=== PATIENT | female | born 1935 | race Caucasian/White ===

== ENCOUNTER 2016-08-15 03:24 | Inpatient (IN) | payer MEDICARE, OTHER ==
[2016-08-15] MEDS ORDERED: NS 0.9% 1000 ML* 1,000 ML IV ONE (03:36)
[2016-08-15] MEDS: Morphine INJ* 2 MG/ML 1 ML SYRINGE IV ONE ×2 (03:44→04:24)
[2016-08-15] MEDS: Ondansetron INJ* 2 MG/ML VIAL IV ONE ×2 (03:45→04:41)
--- NOTE | 2016-08-15 04:01 | ED ---
Abdulkadir Cardona Benjamin, scribed for Garett Goodson MD on 08/15/16 at 0339 . HPI Chest Pain - HPI Summary HPI Summary: 81yo female c/o of sudden onset CP and LUQ abdominal pain for a few hours. Pt also reports feeling nauseous. Pt has hx of gastric ulcer with surgery in 2009. Other PMHx includes HTN, DM1, hypercholesterolemia, and renal failure. - History of Current Complaint Chief Complaint: EDChestPainROMI Hx Obtained From: Patient Onset/Duration: Started Hours Ago, Still Present Timing: Constant Initial Severity: Moderate Current Severity: Moderate Pain Intensity: 8 Pain Scale Used: 0-10 Numeric Chest Pain Location: Diffuse Chest Pain Radiates: Yes Chest Pain Radiates To:: Other - LUQ Aggravating Factor(s): Nothing Alleviating Factor(s): Nothing Associated Signs and Symptoms: Positive: Nausea, Abdominal Pain - Allergy/Home Medications Allergies/Adverse Reactions: Allergies Allergy/AdvReac Type Severity Reaction Status Date / Time No Known Allergies Allergy Verified 08/15/16 03:28 Home Medications: Home Medications Losartan Potassium 100 mg PO QAM 08/15/16 [History Confirmed 08/15/16] Metformin HCl [Metformin HCl ER] 2,000 mg PO QPM 08/15/16 [History Confirmed ] Pioglitazone HCl 30 mg PO QPM 08/15/16 [History Confirmed 08/15/16] PMH/Surg Hx/FS Hx/Imm Hx Endocrine/Hematology History: Denies: Hx Diabetes Cardiovascular History: Denies: Hx Congestive Heart Failure, Hx Hypertension Respiratory History: Reports: Hx Chronic Obstructive Pulmonary Disease (COPD) GI History: Reports: Hx Ulcer - HX OF , 2 YEARS AGO, SOME DISCOMFORT STILL History: Reports: Hx Chronic Renal Failure Musculoskeletal History: Reports: Hx Arthritis, Hx Back Problems, Hx Osteoporosis Denies: Hx Orthopedic Injury Sensory History: Reports: Hx Cataracts, Hx Contacts or Glasses Denies: Hx Hearing Aid Opthamlomology History: Reports: Hx Cataracts, Hx Contacts or Glasses - Cancer History Hx Chemotherapy: No Hx Radiation Therapy: No - Surgical History Surgery Procedure, Year, and Place: 1965, breast biopsy , cateracts x2 , ulcers Hx Anesthesia Reactions: No Infectious Disease History: No Infectious Disease History: Reports: Hx Clostridium Difficile, Hx Shingles Denies: Traveled Outside the [place] in Last 30 Days - Family History Known Family History: Positive: Diabetes, Renal Disease Negative: Cardiac Disease - Social History Occupation: Retired Lives: With Family Substance Use Type: Reports: None Review of Systems Constitutional: Negative Eyes: Negative ENT: Negative Positive: Chest Pain Respiratory: Negative Positive: Abdominal Pain - LUQ, Nausea. Negative: Vomiting, Diarrhea Genitourinary: Negative Musculoskeletal: Negative Skin: Negative Neurological: Negative Psychological: Normal All Other Systems Reviewed And Are Negative: Yes Physical Exam Triage Information Reviewed: Yes Vital Signs On Initial Exam: Initial Vitals Temp Pulse Resp BP Pulse Ox 98.2 F 80 18 161/56 100 08/15/16 03:25 08/15/16 03:25 08/15/16 03:25 08/15/16 03:25 08/15/16 03:25 Vital Signs Reviewed: Yes Appearance: Positive: Well-Appearing, Pain Distress - mild discomfort Skin: Positive: Warm Head/Face: Positive: Normal Head/Face Inspection Eyes: Positive: HANNY ENT: Positive: Hearing grossly normal Neck: Positive: Supple Respiratory/Lung Sounds: Positive: Clear to Auscultation, Breath Sounds Present Cardiovascular: Positive: RRR Abdomen Description: Positive: Soft, Other: - mild diffuse upper absd tenderness. Negative: Distended, Guarding Bowel Sounds: Positive: Present Musculoskeletal: Positive: Strength/ROM Intact Neurological: Positive: Alert, Oriented to Person Place, Time Psychiatric: Positive: Affect/Mood Appropriate Diagnostics - Vital Signs Vital Signs Temp Pulse Resp BP Pulse Ox 08/15/16 03:25 98.2 F 80 18 161/56 100 - Laboratory Result Diagrams: 08/16/16 05:19 08/16/16 05:19 Lab Statement: Any lab studies that have been ordered have been reviewed, and results considered in the medical decision making process. - CT CT Abd/Pelv W CT Interpretation: Positive (See Comments) - cholecystitis with suspected pancreatitis can't be correlated with amylase and lipase levels. - EKG 0329 Cardiac Rate: NL - 79bpm EKG Rhythm: Sinus Rhythm ST Segment: Normal Ectopy: None Chest Pain Course/Dx - Diagnoses Provider Diagnoses: Acute pancreatitis - Provider Notifications Discussed Care Of Patient With: Dr. Loo (Hospitalist) @0126. Instructed by Provider To: Admit As Inpatient Discharge - Discharge Plan Condition: Fair Disposition: ADMITTED TO [facility] The documentation as recorded by the scribeAbdulkadir Benjamin accurately reflects the service I personally performed and the decisions made by me, Garett Goodson MD.
[2016-08-15 04:12] LABS: Albumin 3.6 g/dL (3.2-5.2); BUN/Creatinine Ratio 21.2 (8-20); C Reactive Protein 1.8 mg/L (< 5.00); Calcium 9.6 mg/dL (8.6-10.3); EGFR African American 56.3 (>60); EGFR Non-African American 43.7 (>60); Globulin 3.6 g/dL (2-4); Hematocrit 39 % (35-47); Hemoglobin 12.4 g/dl (12.0-16.0); Magnesium 1.6 mg/dL (1.9-2.7); Mean Corpuscular HGB Conc 32 g/dl (31-36); Mean Corpuscular Hemoglobin 28 pg (27-31); Mean Corpuscular Volume 87 fL (80-97); Mean Platelet Volume 10 um3 (7.4-10.4); Potassium 4.4 mmol/L (3.5-5.0); Red Blood Count 4.43 10^6/ul (4.0-5.4); Red Cell Distribution Width 15 % (10.5-15); Total Bilirubin 1.2 mg/dL (0.2-1.0); Total Protein 7.2 g/dL (6.4-8.9); White Blood Count 15.4 10^3/ul (3.5-10.8)
[2016-08-15 04:14] LABS: Troponin I 0.01 ng/mL (<0.04)
[2016-08-15] MEDS ORDERED: Morphine INJ* 2 MG/ML 1 ML SYRINGE ONE (04:23)
[2016-08-15] MEDS ORDERED: Morphine INJ* 2 MG/ML 1 ML SYRINGE IV ONE (04:26)
[2016-08-15] MEDS ORDERED: HYDROmorphone* 1 MG/ML 1 ML SYR IV SLOW PU ONE (04:31)
[2016-08-15] MEDS ORDERED: Ondansetron INJ* 2 MG/ML VIAL ONE (04:40)
--- NOTE | 2016-08-15 05:35 | HP ---
H&P (Free Text) History and Physical: PCP: Irma Gamble MD Date/Time of Evaluation: 08/15/2016 0510 CC: chest pain HPI: Mrs Linn is an 81YO female HX DM2, CKD 3b, & perforated PUD presents with onset of epigastric and low chest pain yesterday AM sometime after breakfast. The pain worsened throughout the day while she developed nausea with emesis x1. She reports F/C, but denies SOB, palpitations, sweats, black/bloody emesis/stool , B/U/F of urine, or other issues. Her pain worsened to 9/10 prompting her to present for evaluation. Lipase is 5k, WBCs 15k 81% neutrophils, BUN/cre stable 25/1.18. CT abd/pel W is read as cholecystitis with suspected pancreatitis. PMedHx HTN HLD DM2 CKD stg 3b PUD Ambulatory Orders Nursing to reconcile. Atorvastatin* [Lipitor*] 10 mg PO QPM 11/27/12 Pantoprazole Sodium [Protonix] 40 mg PO QAM 11/27/12 Calcium Carbonate-Cholecalcife [Calcium + D] 1,200 mg PO QAM 03/30/13 Furosemide TAB* [Lasix TAB*] 20 mg PO MOTH 03/30/13 Lactobacillus [Probiotic] 1 cap PO QPM 03/30/13 Losartan Potassium 100 mg PO QAM 08/15/16 Metformin HCl [Metformin HCl ER] 2,000 mg PO QPM 08/15/16 Pioglitazone HCl 30 mg PO QPM 08/15/16 Allergies No Known Allergies Allergy (Verified 08/15/16 03:28) PSurgHx OU cateracts tonsillectomy breast BX, benign perforated PUD repair ventral hernia repair section D&C x3 SocHx: no tobacco, alcohol, or recreational drugs; lives with her ; formerly worked as a office secretary; full code status FamHx: positive for CAD ROS: as above, otherwise reviewed and all were negative Constitutional: NAD, shaking chills, normally developed, obese elderly white female vitals: Vital Signs Temp 36.8 C 08/15/16 03:25 Pulse 72 08/15/16 04:00 Resp 30 08/15/16 04:36 BP 145/93 08/15/16 04:30 Pulse Ox 96 08/15/16 04:00 Intake & Output 08/14/16 08/14/16 08/15/16 11:59 23:59 11:59 Weight 81.193 kg HEENM: atraumatic; sclera/conjunctiva: non-icteric/clear; hearing: clinically mildly decreased; oropharynx: clear, mucosa dry Neck: soft tissue: no nuchal rigidity; thyroid: normal Pulmonary: clear to auscultation bilaterally, good aeration, no accessory muscle use CV: RR/RR, normal S1S2, no carotid bruit, no jugular venous distention, 2+ B DP/ PT, no edema Abdominal: soft, mildly distended & tympanic, diffusely markedly tender with voluntary guarding but no rebound/rigidity, hypoactive bowel sounds, no hepatosplenomegaly or masses, no costovertebral angle tenderness Musculoskeletal: general: grossly intact; gait: unable to ambulate 2nd pain/ narcotics Integumental: normal appearance and texture of exposed skin Psychiatric orientation: AA&O to PPS affect: fatigued mood: cooperative eye contact: poor content: reliable responses: mildly slowed insight: fair to good Testing: Lab Results 08/15/16 08/15/16 08/15/16 Range/Units 03:42 03:42 03:42 WBC 15.4 H (3.5-10.8) 10^3/ul RBC 4.43 (4.0-5.4) 10^6/ul Hgb 12.4 (12.0-16.0) g/dl Hct 39 (35-47) % MCV 87 (80-97) fL MCH 28 (27-31) pg MCHC 32 (31-36) g/dl RDW 15 (10.5-15) % Plt Count 202 (150-450) 10^3/ul MPV 10 (7.4-10.4) um3 Neut % (Auto) 81.4 (38-83) % Lymph % (Auto) 10.7 L (25-47) % [place] % (Auto) 7.4 (1-9) % Eos % (Auto) 0.2 (0-6) % Baso % (Auto) 0.3 (0-2) % Absolute Neuts (auto) 12.5 H (1.5-7.7) 10^3/ul Absolute Lymphs (auto) 1.6 (1.0-4.8) 10^3/ul Absolute Monos (auto) 1.1 H (0-0.8) 10^3/ul Absolute Eos (auto) 0 (0-0.6) 10^3/ul Absolute Basos (auto) 0 (0-0.2) 10^3/ul Absolute Nucleated RBC 0.01 10^3/ul Nucleated RBC % 0 INR (Anticoag Therapy) 0.90 (0.89-1.11) Sodium 141 (133-145) mmol/L Potassium 4.4 (3.5-5.0) mmol/L Chloride 104 (101-111) mmol/L Carbon Dioxide 24 (22-32) mmol/L Anion Gap 13 H (2-11) mmol/L BUN 25 H (6-24) mg/dL Creatinine 1.18 H (0.51-0.95) mg/dL Est GFR ( Amer) 56.3 (>60) Est GFR (Non-Af Amer) 43.7 (>60) BUN/Creatinine Ratio 21.2 H (8-20) Glucose 159 H (70-100) mg/dL Lactic Acid (0.5-2.0) mmol/L Calcium 9.6 (8.6-10.3) mg/dL Magnesium 1.6 L (1.9-2.7) mg/dL Total Bilirubin 1.20 H (0.2-1.0) mg/dL AST 61 H (13-39) U/L ALT 34 (7-52) U/L Alkaline Phosphatase 84 (34-104) U/L Troponin I 0.01 (<0.04) ng/mL C-Reactive Protein 1.80 (< 5.00) mg/L Total Protein 7.2 (6.4-8.9) g/dL Albumin 3.6 (3.2-5.2) g/dL Globulin 3.6 (2-4) g/dL Albumin/Globulin Ratio 1.0 (1-3) Lipase 5131 H (11.0-82.0) U/L 08/15/ Range/Units 03:42 WBC (3.5-10.8) 10^3/ul RBC (4.0-5.4) 10^6/ul Hgb (12.0-16.0) g/dl Hct (35-47) % MCV (80-97) fL MCH (27-31) pg MCHC (31-36) g/dl RDW (10.5-15) % Plt Count (150-450) 10^3/ul MPV (7.4-10.4) um3 Neut % (Auto) (38-83) % Lymph % (Auto) (25-47) % [place] % (Auto) (1-9) % Eos % (Auto) (0-6) % Baso % (Auto) (0-2) % Absolute Neuts (auto) (1.5-7.7) 10^3/ul Absolute Lymphs (auto) (1.0-4.8) 10^3/ul Absolute Monos (auto) (0-0.8) 10^3/ul Absolute Eos (auto) (0-0.6) 10^3/ul Absolute Basos (auto) (0-0.2) 10^3/ul Absolute Nucleated RBC 10^3/ul Nucleated RBC % INR (Anticoag Therapy) (0.89-1.11) Sodium (133-145) mmol/L Potassium (3.5-5.0) mmol/L Chloride (101-111) mmol/L Carbon Dioxide (22-32) mmol/L Anion Gap (2-11) mmol/L BUN (6-24) mg/dL Creatinine (0.51-0.95) mg/dL Est GFR ( Amer) (>60) Est GFR (Non-Af Amer) (>60) BUN/Creatinine Ratio (8-20) Glucose (70-100) mg/dL Lactic Acid 1.8 (0.5-2.0) mmol/L Calcium (8.6-10.3) mg/dL Magnesium (1.9-2.7) mg/dL Total Bilirubin (0.2-1.0) mg/dL AST (13-39) U/L ALT (7-52) U/L Alkaline Phosphatase (34-104) U/L Troponin I (<0.04) ng/mL C-Reactive Protein (< 5.00) mg/L Total Protein (6.4-8.9) g/dL Albumin (3.2-5.2) g/dL Globulin (2-4) g/dL Albumin/Globulin Ratio (1-3) Lipase (11.0-82.0) U/L ECG, personally reviewed: NSR rate 78, mild ST depression V5-6 CT abd/pel W, personally reviewed: cholecystitis with suspected pancreatitis Impression: 81F presenting with acute pancreatitis & cholecystitis DIAGNOSIS & PLAN Primary acute pancreatitis : NPO : pain control : IVFs : supplemental oxygen : supportive care cholecystitis : confirm via abdominal US : blood CX : IV piperacillin/tazobactam : IVFs : Lonny Sheridan MD surgery consulted, will follow : obtain interventional radiology consult this AM for consideration of per cutaneous drain Secondary HTN : hold losartan for now, monitor HLD : hold atorvastatin until taking PO DM2 : basal/correctional insulin : hold metformin & pioglitazone : check A1c CKD stg 3b : monitor periodically PUD : pantoprazole IV Admission Rational: inpatient for management of pancreatitis not expected to improve adequately w/i 48h to allow for discharge DVTp: SCDs & heparin SQ Code Status: full HCP:
[2016-08-15] MEDS ORDERED: Acetaminophen SUPP* 650 MG SUPP ONE (05:40)
[2016-08-15] MEDS ORDERED: Albuterol 2.5 MG/3 ML NEB.SOL* (0.083%) INH PRN (05:46)
[2016-08-15] MEDS ORDERED: LORazepam INJ* 2 MG/ML 1 ML VIAL IV PRN (05:46)
[2016-08-15] MEDS ORDERED: Acetaminophen SUPP* 650 MG SUPP PR ONE (05:47)
[2016-08-15] MEDS ORDERED: Ondansetron INJ* 2 MG/ML VIAL IV PRN (05:47)
[2016-08-15] MEDS ORDERED: Acetaminophen SUPP* 650 MG SUPP PR PRN (05:47)
[2016-08-15] MEDS ORDERED: NS 0.9% 1000 ML* 1,000 ML IV SCH (06:00)
[2016-08-15] MEDS ORDERED: fentaNYL* 50 MCG/ML 2 ML VIAL (100 MCG VIAL) IV SLOW PU PRN (07:02)
[2016-08-15] MEDS ORDERED: Magnesium Sulfate 2 GM IV* 2 GM/50 ML BAG IVPB ONE ×3 (07:04→15:23)
[2016-08-15] MEDS ORDERED: Insulin LISPRO* 1 UNITS UNIT SUBCUT SCH (08:00)
[2016-08-15] MEDS: Pantoprazole IV* 40 MG IV SCH (08:10)
--- NOTE | 2016-08-15 08:47 | RAD ---
HISTORY: Cholecystitis on CT COMPARISONS: CT dated August 15, 2016 TECHNIQUE: Multiple transverse and longitudinal ultrasound images were obtained of the right upper quadrant of the abdomen using grayscale and color Doppler imaging. FINDINGS: LIVER: The liver is diffusely echogenic and coarse in echotexture, with decreased acoustic transmission. The liver is otherwise normal in shape, size, and contour. There is normal hepatopedal flow of the portal vein on Doppler imaging. BILIARY TREE: There is no intrahepatic or extrahepatic biliary dilatation. The common duct measures 0.5 cm. GALLBLADDER: There is cholelithiasis. There are immobile stones noted at the level of the neck. There is mild gallbladder wall thickening. There is no pericholecystic fluid. The presence or absence of a sonographic Toth's sign is indeterminate. PANCREAS: The head of the pancreas is unremarkable. The tail of the pancreas is not well visualized secondary to overlying bowel gas. RIGHT KIDNEY: The right kidney is normal in shape, size, contour, and echogenicity. There is no hydronephrosis or nephrolithiasis. The right kidney measures 8.1 x 4.3 x 4.4 cm. AORTA AND IVC: The aorta and IVC are unremarkable. FLUID: There are no pleural effusions. There is no free fluid within the hepatorenal recess. OTHER FINDINGS: None. IMPRESSION: CHOLELITHIASIS WITH MILD GALLBLADDER WALL THICKENING. THERE ARE IMMOBILE STONES NOTED WITHIN THE GALLBLADDER NECK. THE SONOGRAPHIC FEATURES ARE INDETERMINATE FOR ACUTE CHOLECYSTITIS.
--- NOTE | 2016-08-15 09:05 | RAD ---
Indication: Abdominal pain. CT of the abdomen and pelvis was performed without oral contrast. No IV contrast was given. Coronal and sagittal reconstructed images were obtained. The lung bases demonstrate no pleural fluid, nodules or masses. Cardiomegaly is noted without evidence of pericardial effusion The liver is normal in size. No focal lesions or intrahepatic duct dilatation is noted. The spleen is normal in size. No adrenal masses are noted. The kidneys demonstrate no hydronephrosis. Atherosclerotic aorta is noted. The gallbladder demonstrates calcified gallstones; however, no pericholecystic fluid or wall thickening is identified. No dilated loops of bowel are noted. There is thickening of the gastric antrum. This may represent antral gastritis although a mass is not excluded. The pancreas is atrophic. There may be some mild peripancreatic infiltration of fat. The possibility of pancreatitis should be considered. Correlation with amylase and lipase levels should be performed. CT of the pelvis demonstrates no retroperitoneal or pelvic lymphadenopathy. No dilated loops of bowel are noted. The urinary bladder is unremarkable. The visualized portions of the uterus are unremarkable. No hernias are noted. IMPRESSION: Cholelithiasis without biliary duct dilatation. There may be some mild peripancreatic infiltration of fat which may represent pancreatitis. Correlation with amylase and lipase is suggested. There is wall thickening of the gastric antrum. I cannot exclude mucosal thickening and this may represent antral gastritis of the lumen underlying mass is not excluded. Further evaluation is suggested.
[2016-08-15 10:10] LABS: Add Diff/Slide Review? Slide Review Added; Comments Flag Yes; Hematocrit 35 % (35-47); Hemoglobin 11.4 g/dl (12.0-16.0); Mean Corpuscular HGB Conc 32 g/dl (31-36); Mean Corpuscular Hemoglobin 29 pg (27-31); Mean Corpuscular Volume 89 fL (80-97); Mean Platelet Volume 9 um3 (7.4-10.4); Red Blood Count 3.99 10^6/ul (4.0-5.4); Red Cell Distribution Width 15 % (10.5-15); White Blood Count 9.1 10^3/ul (3.5-10.8)
[2016-08-15 10:19] LABS: Albumin 2.7 g/dL (3.2-5.2); BUN/Creatinine Ratio 17.9 (8-20); EGFR African American 48.6 (>60); EGFR Non-African American 37.8 (>60); Globulin 2.6 g/dL (2-4); Potassium 3.9 mmol/L (3.5-5.0); Total Bilirubin 1.7 mg/dL (0.2-1.0); Total Protein 5.3 g/dL (6.4-8.9)
--- NOTE | 2016-08-15 10:22 | ECHO ---
Patient: CHRISTINA ALMONTE [facility] Rec#: [id number] : 1935 Date: 08/15/2016 Age: 81y Height: 162.56 cm / 64.0 in Weight: 81.19 kg / 178.9 lbs Sex: F BSA: 1.87 Room#: [facility] Admit Date#: 08/15/2016 Type: Inpatient Referring: Laurie Byers MD Reading: Victor Hugo Dotson MD Gum Maker: Natalia Jonas ANDREW CC: Ricky Gamble MD Transthoracic Echocardiogram Indication: SOB BP: 101/39 HR: 96 Rhythm: NSR Findings History: DM,HTN,Raynaud's HLD,former smoker, CKD stage III,current acute abdomin, CHF in the past. Technical Comments: The study quality is good. Completed at 1000. Left Ventricle: The left ventricular chamber size is normal. Septal wall hypertrophy is observed. Global left ventricular wall motion and contractility are within normal limits. Left ventricular systolic function is at the lower limits of normal. The estimated ejection fraction is 50-55%. The patient was unable to perform a Valsalva maneuver. Left Atrium: The left atrium is normal in size. The left atrium is mildly dilated. Right Ventricle: The right ventricular cavity size is normal. The right ventricular global systolic function is normal. Right Atrium: The right atrial cavity size is normal. Aortic Valve: The aortic valve is trileaflet. There is no evidence of aortic regurgitation. There is no evidence of aortic stenosis. Mitral Valve: The mitral valve leaflets are mildly thickened. There is mild mitral regurgitation. There is no evidence of mitral stenosis. Tricuspid Valve: The tricuspid valve leaflets are normal. There is mild to moderate tricuspid regurgitation. The tricuspid regurgitant jet is wall impinging. There is evidence of mild pulmonary hypertension. There is no tricuspid stenosis. Pulmonic Valve: The pulmonic valve appears normal. There is no evidence of pulmonic regurgitation. There is no pulmonic stenosis. Pericardium: No pericardial fat pad is visualized. Aorta: There is mild dilatation of the ascending aorta. Pulmonary Artery: The main pulmonary artery appears normal. Venous: The venous system is not well visualized. Conclusions Left ventricular systolic function is at the lower limits of normal. The estimated ejection fraction is 50-55%. Mild left atrial dilatation. There is mild mitral regurgitation. There is mild to moderate tricuspid regurgitation. The tricuspid regurgitant jet is wall impinging. There is evidence of mild pulmonary hypertension. There is mild dilatation of the ascending aorta. Compared to report of study from 02/07/2011the TR is mildly increased (was mild). Measurements Name Value Normal Range RVIDd (AP) 2D 2.2 cm (0.9 - 2.6) RVDdMajor (2D) 2.8 cm (2.2 - 4.4) RAd ISD 4CH 5.4 cm (3.4 - 4.9) RA (A4C)W 3.7 cm (2.9 - 4.6) IVSd (2D) 1.2 cm (0.6 - 1) LVPWd (2D) 0.9 cm (0.6 - 1) LVIDd (2D) 4.9 cm (3.6 - 5.4) LVIDs (2D) 3.8 cm - LV FS (2D) 23 % (25 - 45) Aortic Annulus 1.9 cm (1.4 - 2.6) Ao root diameter (2D) 2.8 cm (2.1 - 3.5) Ascending Ao 3.9 cm (2.1 - 3.4) Aortic arch 2.3 cm (1.8 - 3.4) LA dimension (AP) 2D 3.3 cm (2.3 - 3.8) LAd ISD 4CH 6.2 cm (2.9 - 5.3) LA ISD 4CH W 4.3 cm (2.5 - 4.5) Name Value Normal Range LA ESV SP 4CH (A/L) 63 ml - LA ESV SP 2CH (A/L) 56 ml - LA ESV BP (A/L) 63 ml - LA ESV BP (A/L) index 33.63 ml/m2 - LA ESV SP 4CH (MOD) 58 ml - LA ESV SP 2CH (MOD) 53 ml - Name Value Normal Range MV E-wave Vmax 1.1 m/sec - MV deceleration time 128 msec - MV A-wave Vmax 0.8 m/sec - MV E:A ratio 1.27 ratio - LV septal e' Vmax 0.09 m/sec - LV lateral e' Vmax 0.06 m/sec - LV E:e' septal ratio 12.22 ratio - LV E:e' lateral ratio 18.33 ratio - Name Value Normal Range AV Vmax 1.5 m/sec - AV VTI 33.8 cm - AV peak gradient 9.67 mmHg - AV mean gradient 5.45 mmHg - LVOT Vmax 0.9 m/sec - LVOT VTI 21.1 cm - LVOT peak gradient 3.42 mmHg - LVOT mean gradient 1.98 mmHg - Name Value Normal Range MR Vmax 4.5 m/sec - MR VTI 137.6 cm - Name Value Normal Range TR Vmax 2.9 m/sec - TR peak gradient 33 mmHg - RAP 8 mmHg - RVSP 41 mmHg - Name Value Normal Range PV Vmax 0.8 m/sec - PV peak gradient 2.45 mmHg -
[2016-08-15] MEDS: D5NS 0.9% 1000 ML BAG* 1,000 ML IV SCH ×3 (11:50→23:50)
[2016-08-15] MEDS ORDERED: NS 0.9% 500 ML BAG* 500 ML IV ONE (12:00)
[2016-08-15] MEDS ORDERED: fentaNYL* 50 MCG/ML 2 ML VIAL (100 MCG VIAL) IV SLOW PU ONE (12:16)
[2016-08-15] MEDS: HYDROmorphone* 1 MG/ML 1 ML SYR IV SLOW PU PRN ×2 (12:50→19:50)
--- NOTE | 2016-08-15 13:00 | RAD ---
Indication: Question potential acute cholecystitis based on prior CT and ultrasound. Comparison: August 15, 2016 CT and ultrasound. Technique: 6.30 mCi of Tc-99m Choletec was injected IV. Serial anterior images of the abdomen were obtained immediately following radiopharmaceutical administration to 110 minutes. REPORT AND IMPRESSION: There is normal hepatic uptake however no appreciable excretion of radiopharmaceutical from the liver is observed through 110 minutes post radiopharmaceutical administration. The patient refused further imaging under the gamma camera due to discomfort. Consider potential hepatocellular dysfunction given delayed biliary excretion. Correlate with liver function tests. In absence of delayed images documenting cystic duct and common bile duct patency obstruction of both the cystic duct and common bile duct is not excluded.
--- NOTE | 2016-08-15 13:27 | PN ---
Subjective Date of Service: 08/15/16 Interval History: pt c/o severe LUQ abd pain that developed yesterday. Last BM -yesterday. Last time pt urinated on 08/14/16 transferred to ICU early AM due to hypotension Objective Active Medications: Acetaminophen (Tylenol Supp*) 650 mg CA Q6H PRN PRN Reason: FEVER/PAIN Albuterol (Ventolin 2.5 Mg/3 Ml Neb.Anya*) 2.5 mg INH Q2H PRN PRN Reason: SOB/WHEEZING Fentanyl Citrate (Fentanyl*) 25 mcg IV SLOW PU Q1H PRN PRN Reason: PAIN Last Admin: 08/15/16 08:06 Dose: 25 mcg Heparin Sodium (Porcine) (Heparin Vial(*)) 5,000 units SUBCUT Q8HR [facility] Hydromorphone HCl (Dilaudid Iv*) 1 mg IV SLOW PU Q4H PRN PRN Reason: PAIN Last Admin: 08/15/16 12:50 Dose: 1 mg Lactated Ringer's (Lactated Ringers 1000 Ml Bag*) 1,000 mls @ 0 mls/hr IV WIDE OPEN [facility] PRN Reason: Wide Open Stop: 08/15/16 23:59 Last Admin: 08/15/16 08:21 Dose: 999 mls/hr Piperacillin Sod/Tazobactam (Sod 3.375 gm/ Sodium Chloride) 100 mls @ 25 mls/ hr IVPB Q8H [facility] Dextrose/Sodium Chloride (D5ns 0.9% 1000 Ml Bag*) 1,000 mls @ 175 mls/hr IV PER RATE [facility] Last Admin: 08/15/16 11:50 Dose: 175 mls/hr Insulin Human Lispro (Humalog*) 0 units SUBCUT Q6H [facility] PRN Reason: Protocol Lorazepam (Ativan Inj*) 0.5 mg IV BEDTIME PRN PRN Reason: SLEEP Ondansetron HCl (Zofran Inj*) 4 mg IV Q6H PRN PRN Reason: NAUSEA Pantoprazole Sodium (Protonix Iv*) 40 mg IV DAILY [facility] Last Admin: 08/15/16 08:10 Dose: 40 mg Vital Signs 08/15/16 08/15/16 08/15/16 05:40 05:48 06:00 Temperature 101 F Pulse Rate 112 110 Respiratory 27 28 Rate Blood Pressure 152/94 156/82 (mmHg) O2 Sat by Pulse 92 92 Oximetry 08/15/16 08/15/16 08/15/16 06:13 06:55 06:59 Temperature 100.2 F Pulse Rate 103 Respiratory 21 17 Rate Blood Pressure 109/38 112/36 (mmHg) O2 Sat by Pulse 93 Oximetry 08/15/16 08/15/16 08/15/16 07:00 07:04 07:15 Temperature Pulse Rate 102 101 99 Respiratory 18 19 18 Rate Blood Pressure 112/36 102/38 99/34 (mmHg) O2 Sat by Pulse 92 91 92 Oximetry 08/15/16 08/15/16 08/15/16 07:30 07:36 07:45 Temperature 100.6 F Pulse Rate 96 Respiratory 17 Rate Blood Pressure 99/33 97/33 (mmHg) O2 Sat by Pulse 92 Oximetry 08/15/16 08/15/16 08/15/16 07:57 08:00 08:06 Temperature Pulse Rate 97 Respiratory 18 22 Rate Blood Pressure 102/37 101/39 (mmHg) O2 Sat by Pulse 94 99 Oximetry 08/15/16 08/15/16 08/15/16 08:15 08:30 08:45 Temperature Pulse Rate 90 86 93 Respiratory 18 15 20 Rate Blood Pressure 92/37 92/33 115/38 (mmHg) O2 Sat by Pulse 94 96 91 Oximetry 08/15/16 08/15/16 08/15/16 09:00 09:06 09:15 Temperature Pulse Rate 108 96 Respiratory 18 17 15 Rate Blood Pressure 132/51 116/40 (mmHg) O2 Sat by Pulse 98 97 Oximetry 08/15/16 08/15/16 08/15/16 09:30 09:44 10:00 Temperature Pulse Rate 93 90 Respiratory 13 16 Rate Blood Pressure 105/41 102/47 (mmHg) O2 Sat by Pulse 97 97 Oximetry 08/15/16 08/15/16 08/15/16 10:23 11:00 11:10 Temperature Pulse Rate 90 Respiratory 17 17 15 Rate Blood Pressure (mmHg) O2 Sat by Pulse 95 Oximetry 08/15/16 08/15/16 08/15/16 11:15 11:30 11:45 Temperature Pulse Rate 89 Respiratory 18 20 20 Rate Blood Pressure 107/44 111/47 123/50 (mmHg) O2 Sat by Pulse 96 Oximetry 08/15/16 08/15/16 08/15/16 11:50 11:56 12:00 Temperature Pulse Rate Respiratory 20 19 19 Rate Blood Pressure 108/52 (mmHg) O2 Sat by Pulse Oximetry 08/15/16 08/15/16 08/15/16 12:05 12:12 12:15 Temperature Pulse Rate 93 94 Respiratory 19 19 18 Rate Blood Pressure 118/50 (mmHg) O2 Sat by Pulse 92 94 Oximetry 08/15/16 08/15/16 08/15/16 12:30 12:37 12:45 Temperature Pulse Rate 94 95 93 Respiratory 16 16 19 Rate Blood Pressure 100/46 100/51 104/37 (mmHg) O2 Sat by Pulse 92 94 94 Oximetry 08/15/16 08/15/16 08/15/16 12:47 12:50 13:00 Temperature 99.8 F Pulse Rate 92 Respiratory 18 15 Rate Blood Pressure 68/45 (mmHg) O2 Sat by Pulse 97 Oximetry 08/15/16 08/15/16 13:02 13:03 Temperature Pulse Rate 93 95 Respiratory 18 22 Rate Blood Pressure 99/40 (mmHg) O2 Sat by Pulse 97 96 Oximetry Oxygen Devices in Use Now: Nasal Cannula - at 2 L Appearance: 81 yo F in nAd, aAOx3, mildly anxious Eyes: No Scleral Icterus, PERRLA Ears/Nose/Mouth/Throat: NL Teeth, Lips, Gums, Mucous Membranes Moist Neck: NL Appearance and Movements; NL JVP, Trachea Midline Respiratory: Symmetrical Chest Expansion and Respiratory Effort, Clear to Auscultation Cardiovascular: NL Sounds; No Murmurs; No JVD, RRR Abdominal: - - soft, tender in epigastrium and LUQ, no rebound, no guarding, BS+ Extremities: No Clubbing, Cyanosis, - - trace pedal edema b/l Skin: No Rash or Ulcers, No Nodules or Sclerosis Neurological: Alert and Oriented x 3, NL Muscle Strength and Tone Result Diagrams: 08/15/16 09:50 08/15/16 09:50 Microbiology and Other Data: Microbiology 08/15/16 07:00 Nasal Screen MRSA (PCR)(VERENA) - Final Nasal Mrsa Negative Assess/Plan/Problems-Billing Assessment: 81 yo F with h/o perforated gastric ulcer s/p surgical repair in the past, CHF (EF WNL), HTN, dyslipidemia, CKD stage 3, DM2 presents with abd pain and pancreatitis - Patient Problems (1) Pancreatitis, acute Comment: suspect due to obstruction, although not visualised in CBD on CT or US Lipase trending down cont NPO, IVF Pt refused NG tube (2) Cholelithiasis Comment: with "immobille" stones in cystic duct. ? cholecystitis, but no pericholecystic fluid noted on US cont Zosyn Appreciate Dr. Sheridan's consult (3) Urinary retention Comment: Acute. Unable to have Mcgill placed by RN Asked Dr. Carey to see pt Post void measured at 1 PM at approx 500ml Increasing creat and lactic acid level -most likely dye to obstruction (4) CKD stage 3 due to type 2 diabetes mellitus Comment: with worseing renal failure due to obstruction cont IVF Folay to be placed by urology (5) Chest pain Comment: appears to be epigastric pain radiating to chest. EKG unremarkable will check repeat trop (6) DM type 2 (diabetes mellitus, type 2) Comment: Was hypoglycemic this AM and NPO Placed on D5NS cont fingersticks Q6 (7) Hypotension Comment: due to SIRS from pancreatitis vs sepsis due to cholecystitis Lactate with worseninbg Cont ICU Cont IVF, repeat lactate at 3 PM (8) DVT prophylaxis Comment: heparin sc Status and Disposition: inpatient
[2016-08-15] MEDS: Insulin LISPRO* 1 UNITS UNIT SUBCUT SCH ×2 (14:07→17:56)
[2016-08-15] MEDS ORDERED: Lactated Ringers 500 ml BAG* 500 ML IV ONE (15:00)
--- NOTE | 2016-08-15 15:46 | PN ---
Progress Note - Progress Note Note: pt had a run of >50 beats for V. tach , asymptomatic. abd pain"better", AAOx3 SBP's in 90's, but required several IVF boluses for SBP in 70's Called Dr. Carey's office back to remind about Mcgill. Pt is still unable to urinate. Received 4 gms of Mag, but since she had V. tach will order another [address] Charles. Dr. Sheridan will come in and place a triple lumen. Pt may require pressors. 3 PM labs pending
[2016-08-15 15:55] LABS: BUN/Creatinine Ratio 17.2 (8-20); EGFR African American 54.1 (>60); EGFR Non-African American 42.1 (>60); Potassium 3.2 mmol/L (3.5-5.0)
[2016-08-15 15:56] LABS: Troponin I 0.01 ng/mL (<0.04)
[2016-08-15 16:00] LABS: Calcium 6.1 mg/dL (8.6-10.3)
[2016-08-15] MEDS ORDERED: KCL 20 MEQ/100 ML IVPREMIX* 20 MEQ/100 ML BAG ONE (16:02)
[2016-08-15 16:20] LABS: Direct Bilirubin 0.9 mg/dL (0.03-0.18); Indirect Bilirubin 0.5 mg/dL (0.3-1.0); Total Bilirubin 1.4 mg/dL (0.2-1.0)
--- NOTE | 2016-08-15 16:33 | RAD ---
INDICATION: Sepsis COMPARISON: Similar chest x-ray dated February 25, 2011 TECHNIQUE: Single AP portable view of the chest was obtained. FINDINGS: Image quality is compromised due to the relative inferiority of a portable chest x-ray. Again seen is a mild degree of cardiomegaly. There are faint patchy densities and mild engorgement of the pulmonary vasculature. There is a slight degree of bibasilar costophrenic angle blunting. Visualized bones are normal for the patient's age. IMPRESSION: In the correct clinical setting these findings could be compatible with exacerbation of congestive heart failure.
[2016-08-15] MEDS: KCL 20 MEQ/100 ML IVPREMIX* 20 MEQ/100 ML BAG IV SCH ×3 (16:41→19:37)
[2016-08-15] MEDS ORDERED: Calcium Gluconate INJ* 1 GM in NS 0.9% 50 ML* 50 ML IVPB ONE (16:59)
[2016-08-15] MEDS: Norepinephrine 16MCG/ML IVPRE* 4,000 MCG/250 ML BAG IV SCH (17:35)
--- NOTE | 2016-08-15 18:32 | RAD ---
INDICATION: Right neck central line placement COMPARISON: Chest x-ray August 15, 2016 acquired at 1458 hours TECHNIQUE: Single AP portable view of the chest was obtained at 1621 hours. FINDINGS: Image quality is compromised due to the relative inferiority of a portable chest x-ray. There is been interval placement of a right neck central line with the tip terminating at the superior vena cava. Similar to the previous chest x-ray there appears be mild cardiomegaly and signs of vascular congestion. The lungs are otherwise grossly clear. Visualized bones are normal for the patient's age. IMPRESSION: Interval placement of a right neck central line with the tip terminating at the superior vena cava. There is no right-sided pneumothorax.
[2016-08-15 18:47] LABS: Urine Bacteria Absent (Absent); Urine Bilirubin Negative (Negative); Urine Glucose Negative (Negative); Urine Nitrite Negative (Negative)
[2016-08-15] MEDS ORDERED: Cefepime(*) 2 GM in NS 0.9% 50 ML* 50 ML IVPB ONE (20:00)
--- NOTE | 2016-08-15 20:33 | CONS ---
CC: Dr. Ricky Gamble; [facility]. SURGICAL CONSULTATION REPORT AND PROCEDURE REPORT: DATE OF CONSULT: 08/15/16 LOCATION: In the ICU. HISTORY OF PRESENT ILLNESS: I was contacted by the hospitalist service earlier today to evaluate Ms Jamie Linn, an 81-year-old female who presented to the emergency room with complaint of acute o nset of abdominal pain. The patient's workup in the emergency room included labs as well as CT scan . A diagnosis of acute pancreatitis was entertained and the patient was admitted to the ICU for thi s diagnosis. The patient describes onset of pain yesterday in the morning, sometime after breakfast. It was he re mostly in the epigastrium and left chest. It did radiate to the back. The patient states it was similar to her pain when she was diagnosed with perforated peptic ulcer in 2010. It was accompanie d with nausea and vomiting, as well as fevers and chills. She also describes obstipation and cannot remember her last bowel movement. Pain is minimally alleviated with narcotics. It is minimally re lieved with rest and lying down. Since admission, the patient states the pain has been steady witho ut any significant relief. She has no appetite, but is thirsty. When I saw the patient, she had at tempted a Mcgill placement, she had not urinated through the night. Mcgill catheter was unable to be inserted. Then I did make an attempt in the sliver cutter. When I rounded and saw her again later in the day, a Mcgill catheter still was not able to be inserted and Urology consult was entered. The patient had a bladder scan which showed a full bladder. PAST MEDICAL HISTORY: Type 2 diabetes, hypertension, chronic kidney disease, peptic ulcer disease, hyperlipidemia. PAST SURGICAL HISTORY: Exploratory laparotomy and Joseph plication in 2010 for perforated ulcer. T he patient was also treated for a ventral hernia with a laparoscopic ventral hernia repair in 2014. MEDICATIONS: Home medications are reviewed and the patient has been started on Zosyn. SOCIAL HISTORY: She is a nonsmoker. Lives with her . REVIEW OF SYSTEMS: No shortness of breath. She did have chest pain as described, but now it is mor e abdominal. Nausea and vomiting as described. No neurologic deficits. No visual disturbances. N o change in bowel habits, but states that she is obstipated. Denies any dysuria or hematuria, but n ow is notably having difficulty voiding. No bleeding or clotting disorders. PHYSICAL EXAM: She is currently afebrile, but her T-max is 101.0. Heart rate is in the 90s, but sh e has been in the 100s during this hospitalization. She is normotensive with good respiratory rate. She is on 2 L nasal cannula and has O2 sats in the high 90s. She is alert and oriented x3. She i s in distress. She is tender to touch diffusely and even Mcgill placement attempts led to significan t pain in the perineal area. Lungs: Clear to auscultation bilaterally. Abdomen: Soft, obese, dis tended, tender diffusely with tenderness to percussion, and voluntary guarding. Well-healed surgica l incisions with no hernias or masses noted. No skin changes. No CVA tenderness. Rectal: Exam no t performed. Extremities: With no pitting edema. DIAGNOSTIC STUDIES/LAB DATA: Labs reviewed. The patient presented with a white count of 15.4. On reevaluation, it is 9.1. Chemistry panels show elevated lipase of 5,000 which has started to drop. She has elevated transaminases. The patient underwent a CT scan of the abdomen and pelvis. These images were reviewed as well as th e report from the overnight and again discussed with the Radiology Department. It did show cholelit hiasis, but no biliary ductal dilatation. Peripancreatic infiltration consistent with pancreatitis. This looked like mucoal thickening in the gastric antrum, but no evidence of free air to suggest p erforation. The patient also underwent an ultrasound of the gallbladder, which mucosal thickening in the antrum. The patient also underwent an ultrasound of the gallbladder, which did not show annamarie cholecystic fluid, but did show stones in the neck of the gallbladder. She also underwent a HIDA sc an, which over the course of approximately 2 hours showed nothing but hepatic uptake, but no appreci able excretion. Again, all images were reviewed as well by me. IMPRESSION: Likely pancreatitis secondary to gallstone. The patient will benefit from an MRCP, but the urgent issues are bladder drainage, IV fluids, and n.p.o. status. It did show evidence of impr diana lipase during her stay. We will continue to follow her labs. I have recommended transferrer e valuation as well on her. The hospitalist service asked for central line access and after obtaining informed consent, I placed this. The patient's right neck and right chest were prepped sterilely. Injection of lidocaine along the i nternal jugular vein was delivered. The right IJ was cannulated and a wire inserted with ease. Tra ck dilated and a triple-lumen catheter inserted and sutured to the skin. All 3 ports were flushed w ith saline after good aspiration of blood. Sterile dressing was applied. The patient tolerated the procedure well. PLAN: We will continue to follow the patient closely. She may require laparoscopic cholecystectomy , but her urgent issue is the pancreatitis. We will follow Urology, labs, and the patient may benef it from repeat CAT scan if she does not show additional improvement over the course of the next 24 h ours. [id number]/[facility] #: [id number]
[2016-08-15] MEDS ORDERED: Insulin GLARGINE(*) 1 UNITS UNIT SUBCUT SCH (21:00)
[2016-08-15 22:44] LABS: BUN/Creatinine Ratio 16.2 (8-20); Calcium 8.3 mg/dL (8.6-10.3); EGFR African American 41.4 (>60); EGFR Non-African American 32.2 (>60); Potassium 4.9 mmol/L (3.5-5.0)
[2016-08-16] MEDS: Insulin LISPRO* 1 UNITS UNIT SUBCUT SCH ×3 (00:07→11:45)
[2016-08-16] MEDS: Norepinephrine 16MCG/ML IVPRE* 4,000 MCG/250 ML BAG IV SCH ×2 (00:46→12:41)
[2016-08-16] MEDS: HYDROmorphone* 1 MG/ML 1 ML SYR IV SLOW PU PRN ×2 (05:09→12:26)
[2016-08-16 05:32] LABS: Hematocrit 33 % (35-47); Hemoglobin 10.4 g/dl (12.0-16.0); Mean Corpuscular HGB Conc 32 g/dl (31-36); Mean Corpuscular Hemoglobin 28 pg (27-31); Mean Corpuscular Volume 88 fL (80-97); Mean Platelet Volume 9 um3 (7.4-10.4); Red Blood Count 3.71 10^6/ul (4.0-5.4); Red Cell Distribution Width 15 % (10.5-15); White Blood Count 24.2 10^3/ul (3.5-10.8)
[2016-08-16 05:44] LABS: Comments Flag Yes
[2016-08-16 05:45] LABS: Add Diff/Slide Review? Slide Review Added; Albumin 2.8 g/dL (3.2-5.2); BUN/Creatinine Ratio 16.7 (8-20); Calcium 7.9 mg/dL (8.6-10.3); Direct Bilirubin 1.9 mg/dL (0.03-0.18); EGFR African American 44.7 (>60); EGFR Non-African American 34.8 (>60); Globulin 2.9 g/dL (2-4); Indirect Bilirubin 0.6 mg/dL (0.3-1.0); Magnesium 2.8 mg/dL (1.9-2.7); Potassium 4.9 mmol/L (3.5-5.0); Total Bilirubin 2.5 mg/dL (0.2-1.0); Total Protein 5.7 g/dL (6.4-8.9)
[2016-08-16] MEDS ORDERED: Heparin VIAL(*) 5000 UNITS/ML VIAL (FIVE THOUSAND) SUBCUT SCH (06:00)
[2016-08-16] MEDS: Pantoprazole IV* 40 MG IV SCH (07:58)
--- NOTE | 2016-08-16 08:29 | PN ---
Progress Note - Progress Note Note: Spoke with Dr. Charles and Fatimah about the pt. Dr. Charles will take over pt's care.
--- NOTE | 2016-08-16 10:17 | RAD ---
HISTORY: Rule out cholecystitis COMPARISONS: Ultrasound dated August 15, 2016, CT dated August 15, 2016 TECHNIQUE: Multiple transverse and longitudinal ultrasound images were obtained of the right upper quadrant of the abdomen using grayscale and color Doppler imaging. FINDINGS: LIVER: The liver is diffusely echogenic and coarse in echotexture, with decreased acoustic transmission. There is normal hepatopedal flow of the portal vein on Doppler imaging. BILIARY TREE: There is no intrahepatic or extrahepatic biliary dilatation. The common duct measures 0.7 cm. GALLBLADDER: There are multiple gallbladder stones noted. There is gallbladder wall thickening with a small amount of pericholecystic fluid. The presence or absence of the sonographic sign is indeterminate. PANCREAS: The head of the pancreas is unremarkable. The tail of the pancreas is not well visualized secondary to overlying bowel gas. RIGHT KIDNEY: The right kidney is normal in shape, size, contour, and echogenicity. There is no hydronephrosis or nephrolithiasis. The right kidney measures 9.4 x 4.1 x 4.2 cm. AORTA AND IVC: The aorta and IVC are unremarkable. FLUID: There are no pleural effusions. There is no free fluid within the hepatorenal recess. OTHER FINDINGS: None. IMPRESSION: AGAIN NOTED IS CHOLELITHIASIS. THERE HAS BEEN INTERVAL DEVELOPMENT OF GALLBLADDER WALL THICKENING WITH A SMALL AMOUNT OF PERICHOLECYSTIC FLUID. THE PRESENCE OR ABSENCE OF A SONOGRAPHIC CRESPO SIGN IS INDETERMINATE. THE FINDINGS ARE CONCERNING FOR DEVELOPING ACUTE CHOLECYSTITIS
--- NOTE | 2016-08-16 10:32 | PN ---
Progress Note - Progress Note Note: Brief Note by ICU Attendin yo white female admitted 08/15 with pancreatitis and cholelithiasis, who has developed septic shock with gram-negative bacteremia (Rx PIP/TAZO, organism not yet identified). Right upper quadrant ultrasound shows signs of cholecystitis ( thickened wall and pericholecystic fluid). Radionucleide scan attempted, but liver did not take up the tracer. Lipase has decreased dramatically since admission (from 2449 to 201), possibly from passage of a gallstone, but bilirubin is rising (from 1.7 to 2.5), which raises the concern for an ascending cholangitis. Patient will be transferred (to [facility]) for an ERCP. She is currently on levophed at 12 mcg/min to maintain a mean BP > 65 mmHg, and she is awake, with an adequate urine output (> 40 ml/hr). FYI: Bladder catheterization was very difficult (? urethral stricture), so Mcgill catheter should be kept in place for as long as possible)
[2016-08-16] MEDS ORDERED: Hydrocortisone INJ* 100 MG VIAL IV SCH (11:00)
[2016-08-16 12:11] VITALS: BP 127/40
--- NOTE | 2016-08-16 13:23 | TRS ---
TRANSFER SUMMARY: DATE OF ADMISSION: 08/15/16 DATE OF TRANSFER: 08/16/16, to [facility]. PRIMARY CARE PROVIDER: Dr. Gamble. REASON FOR TRANSFER: 1. Need of ERCP in patient with cholangitis and possible cholecystitis as well as cholelithiasis. 2. Patient is also in severe sepsis and septic shock, requiring pressors. MEDICATIONS AT DISCHARGE AND TRANSFER: Include: 1. Cefepime 2 g IV every 12 hours. 2. Dilaudid 1 mg IV every 4 hours. 3. Heparin 5000 units subcutaneously every 8 hours. 4. Levophed at 11 mcg continuous infusion. 5. Zosyn 3.375 g IV every 8 hours extended infusion protocol. 6. D5 normal saline at 175 mL/hour continuously. CONSULTATIONS DURING THE HOSPITAL STAY: Included: 1. Dr. Mclain, Gastroenterology. 2. Dr. Sheridan, Surgery. 3. Dr. Charlse, [facility]. LABORATORY DATA AND STUDIES PERFORMED DURING THE HOSPITAL STAY: Included: On 08/15/16, white blood cell count of 9.1, hemoglobin of 11.4, hematocrit of 35 , and platelets of 134. On 08/16/16, white blood cell count of 24,000, hemoglobin of 10.4, hematocrit of 33, and platelets of 158. On 08/16/16, sodium of 137, potassium 4.9, chloride 111, carbon dioxide 20, BUN 24, creatinine 1.44. Liver function tests showed bilirubin total of 2.5, AST of 154, ALT of 143, alkaline phosphatase of 120, lipase of 201. Most recent abdominal ultrasound performed on 08/16/16, impression: "Again noted cholelithiasis. There had been interval development of the gallbladder wall thickening along with small amount of pericholecystic fluid. The presence or absence of sonographic Toth's sign is indeterminate. The findings are concerning for developing acute cholecystitis." HIDA scan obtained on 08/15/16, impression: "There is normal hepatic uptake; however, no appreciable excretion of radiopharmaceutical from the liver is observed through 110 minutes post radiopharmaceutical administration. The patient refused further imaging under the gamma, due to discomfort. Consider potential hepatocellular dysfunction given delayed biliary excretion. Correlate with liver function tests. In absence of delayed images, documenting cystic duct and common bile duct patency, obstruction of both the cystic duct and common bile duct is not excluded." Transthoracic echocardiogram obtained on 08/15/16, impression: "Left ventricular systolic function at lower limits of normal. EF of 55%. Mild left atrial dilatation. There is mild mitral regurgitation. There is mild-to- moderate tricuspid regurgitation. The tricuspid regurgitant jet is wall impinging. There is evidence of mild pulmonary hypertension. There is mild dilatation of the ascending aorta. Compared to report of studies from 2011, the tricuspid regurgitation is mildly increased." Abdominal ultrasound obtained on 08/15/16, impression: "Cholelithiasis with mild gallbladder wall thickening. There are immobile stones noted within the gallbladder neck. The sonographic features are indeterminate for acute cholecystitis." Abdomen and pelvis CT obtained on admission on 08/15/16, impression: "Cholelithiasis without biliary duct dilatation. There may be some mild peripancreatic infiltration of fat, which may represent pancreatitis. Correlation with amylase and lipase is suggested. There is wall thickening of the gastric antrum. I cannot exclude mucosal thickening and this may represent antral gastritis of the lumen, underlying mass is not excluded. Further evaluation is suggested." PAST MEDICAL HISTORY: 1. History of exploratory laparotomy with Joseph patch repair of perforated prepyloric ulcer in January of [address] Cantor at [facility]. 2. History of diabetes type 2. 3. History of ventral hernia repair in 2013. 4. COPD, not oxygen dependent. 5. History of mild CHF with normal EF in the past. 6. History of C. diff colitis in the past. 7. History of D and C. 8. History of . 9. History of benign breast biopsy. 10. Chronic kidney disease, stage 3, most likely due to diabetes with creatinine at baseline from 1.2 to 1.3. HOSPITALIZATION COURSE: On 08/15/16, Mrs. Linn is an 81-year-old female with history of diabetes, presented to the hospital complaining of chest pain. In fact, she was complaining of epigastric pain with radiation to the left upper chest. She denied any diarrhea and her bowel movements have been regular and daily. She was admitted with diagnosis of pancreatitis since her lipase was noted to be above 5000. The CT of the abdomen as mentioned above showed no common bile duct dilatation. A repeat abdominal ultrasound showed common bile duct at 0.5 cm but immobile stones within the gallbladder neck. Dr. Sheridan saw the patient in surgery consultation. The recommendation was to treat the patient's pancreatitis. Further investigations in regards to possibility of cystic duct obstruction are carried on including HIDA scan. At this point, the patient started getting hypotensive and due to that, she most likely had delayed perfusion through the liver. As noted above, the HIDA scan was inconclusive due to no appreciable excretion of radiopharmaceutical from the liver after 110 minutes of observation. During the day of 08/15/16, patient became hypotensive despite intravenous fluid resuscitation. She was continued on Zosyn since her admission and once her blood cultures turned out to be positive for gram- negative bacilli, cefepime was added for double gram-negative coverage in this patient with septic shock. Despite multiple intravenous fluid boluses, she continued to be hypotensive and required to be started on Levophed drip in the evening on 08/15/16. Another complicating factor was that she could not void. We also had difficult time placing Mcgill catheter in this patient due to what appeared to be atrophic urethra. Dr. Carey from Urology came in and placed the catheter. It is recommendation of the urologist not to discontinue the catheter once the patient is well. The patient is to be discharged home with the catheter and see Urology as outpatient. On the night of 08/15/16, the patient became febrile and continued to require pressor support. In the morning on 08/16/16, the patient's leukocytosis was progressive. She continued to have epigastric and left upper quadrant abdominal pain. In the 24 hours of her hospital stay, her urine output was only 1000 mL. She initially developed slight worsening of her creatinine up to 1.54 but that started to improve by the time of transfer. Dr. Charles, the black topper, was involved in patient's care on 08/16/16. Dr. Mclain was consulted from Gastroenterology and recommended most likely ERCP. Repeat ultrasound of the abdomen was performed, which showed most likely cholangitis and cholecystitis. At this point, our facility unfortunately did not have a provider who is able to perform ERCP and a transfer was recommended. Dr. Dante Palacio from [facility] in [place], [place] was kindly accepted the patient after conversation with Dr. Charles, the black topper. The patient is going to be transferred to Dr. Lloyd's service to the intensive care unit at [facility] today. PHYSICAL EXAM AT THE TIME OF TRANSFER: Blood pressure of 118/38 on 11 mcg of Levophed. Heart rate of 101 and regular, respiratory rate 12, oxygen saturation 95% on 6 L of oxygen nasal cannula. General: The patient is a pleasant 81-year- old female who appears ill. The patient is in no acute distress. The patient is alert and oriented x3. HEENT: Head atraumatic, normocephalic. Eyes: Pupils are equal, round and reactive to light and accommodation. Oropharynx clear. Mucosa dry. Neck: Supple. No JVD, no bruits bilaterally. Cardiovascular: Regular rate and rhythm with no murmur. Respiratory: Crackles at bilateral bases, otherwise clear. Abdomen: Soft, very hyperactive bowel sounds throughout. There is epigastric tenderness and left upper quadrant tenderness with no rebound, no guarding. Extremities: There is +1 pitting pedal edema. Pulses +2 bilaterally. There is no clubbing or cyanosis. On evaluation of the skin, the patient has ecchymosis on bilateral upper extremities due to venipunctures. Neuro Evaluation: Speech clear. Cranial nerves II through XII grossly intact. Motor strength is 5/5 bilaterally. Please note that the patient has right jugular triple lumen in place. PROCEDURES PERFORMED DURING THE HOSPITAL STAY: Included right IJ triple lumen placed by Dr. Sheridan on 08/15/16. Please also note that the patient had an episode of at least 50 beats of ventricular tachycardia in the afternoon on 08/15/16. At that point, she was noted to be hypokalemic and hypomagnesemic and her electrolytes were replaced. She had no recurrence of her arrhythmia. Please also note that patient's troponins throughout her stay were negative with most recent troponin checked on 08/15/16 at 1500 hours and that was 0.01. Please note that this is a short summary of the patient's hospital stay. Please refer to further medical records for details. TIME SPENT: Approximately 45 minutes was spent on the transfer. CC: Dr. Gamble; Dr. Charles, [facility]; Dr. Lloyd, Pulmonology/Critical Care , [place], [place]; Dr. Sheridan, Surgery; Dr. Mclain, Gastroenterology; Dr. Dante Palacio, Gastroenterology, [place], [place]* [id number]/[facility] #: [id number] [facility]
== END 2016-08-16 12:35 | disposition short-term general hospital (02) | DRG 871 ==
LOC: ED 03:24 → MEDTELE 05:10 → ICU 06:30
PROVIDERS: ADMIT Hospitalist; ATTEND Internal Medicine Critical Care Medicine
PROC: 05HM33Z Insertion of Infusion Device into Right Internal Jugular Vein, Percutaneous Approach (ICD-10-PCS; principal; 2016-08-15)
PROC: 3E033XZ Introduction of Vasopressor into Peripheral Vein, Percutaneous Approach (ICD-10-PCS; 2016-08-16)
DX: A41.50 Gram-negative sepsis, unspecified (principal); K85.90 Acute pancreatitis without necrosis or infection, unspecified; R65.21 Severe sepsis with septic shock; I47.2 Ventricular tachycardia; K83.0 Cholangitis; K80.00 Calculus of gallbladder with acute cholecystitis without obstruction; N18.3 Chronic kidney disease, stage 3 (moderate); I13.0 Hypertensive heart and chronic kidney disease with heart failure and stage 1 through stage 4 chronic kidney disease, or unspecified chronic kidney disease; I50.9 Heart failure, unspecified; E11.22 Type 2 diabetes mellitus with diabetic chronic kidney disease; K29.70 Gastritis, unspecified, without bleeding; J44.9 Chronic obstructive pulmonary disease, unspecified; M81.0 Age-related osteoporosis without current pathological fracture; M19.90 Unspecified osteoarthritis, unspecified site; E78.5 Hyperlipidemia, unspecified; E78.00 Pure hypercholesterolemia, unspecified; E66.9 Obesity, unspecified; R33.9 Retention of urine, unspecified; I27.2 Other secondary pulmonary hypertension; I08.1 Rheumatic disorders of both mitral and tricuspid valves; I77.819 Aortic ectasia, unspecified site; E87.6 Hypokalemia; E83.42 Hypomagnesemia; Z98.42 Cataract extraction status, left eye; Z98.41 Cataract extraction status, right eye; Z86.19 Personal history of other infectious and parasitic diseases; Z83.3 Family history of diabetes mellitus; Z84.2 Family history of other diseases of the genitourinary system; Z82.49 Family history of ischemic heart disease and other diseases of the circulatory system; Z68.31 Body mass index [BMI] 31.0-31.9, adult
CPT/HCPCS: 36415; 71010; 74176; 76705; 78226; 80048; 80053; 80076; 81003; 81015; 82248; 83036; 83605; 83690; 83735; 84484; 85025; 85610; 85730; 86140; 87040; 87077; 87086; 87186; 87205; 87641; 93005; 93306; 94760; A9270-GY; A9537; J0610; J0692; J1170; J1644; J1720; J2060; J2270; J2405; J2543; J3010; J3480

== ENCOUNTER 2016-09-25 07:47 | Emergency (ER) | payer MEDICARE, OTHER ==
[2016-09-25] MEDS ORDERED: NS 0.9% 1000 ML* 1,000 ML IV ONE ×2 (08:54→13:52)
[2016-09-25] MEDS ORDERED: Morphine INJ* 4 MG/ML 1 ML SYRINGE IV ONE ×2 (09:09→09:42)
[2016-09-25] MEDS ORDERED: Ondansetron INJ* 2 MG/ML VIAL IV ONE (09:09)
[2016-09-25] MEDS ORDERED: Ondansetron INJ* 2 MG/ML VIAL ONE (09:10)
[2016-09-25] MEDS ORDERED: Morphine INJ* 2 MG/ML 1 ML SYRINGE ONE (09:10)
[2016-09-25 09:17] LABS: Hematocrit 46 % (35-47); Hemoglobin 14.7 g/dl (12.0-16.0); Mean Corpuscular HGB Conc 32 g/dl (31-36); Mean Corpuscular Hemoglobin 29 pg (27-31); Mean Corpuscular Volume 89 fL (80-97); Mean Platelet Volume 10 um3 (7.4-10.4); Red Blood Count 5.12 10^6/ul (4.0-5.4); Red Cell Distribution Width 16 % (10.5-15); White Blood Count 13.7 10^3/ul (3.5-10.8)
[2016-09-25 09:32] LABS: Albumin 3.7 g/dL (3.2-5.2); BUN/Creatinine Ratio 17.9 (8-20); C Reactive Protein 30.55 mg/L (< 5.00); Calcium 10.2 mg/dL (8.6-10.3); EGFR Non-African American 30.3 (>60); Globulin 4.2 g/dL (2-4); Magnesium 1.3 mg/dL (1.9-2.7); Total Protein 7.9 g/dL (6.4-8.9)
[2016-09-25 09:33] LABS: Troponin I 0.03 ng/mL (<0.04)
--- NOTE | 2016-09-25 10:11 | RAD ---
INDICATION: Cholelithiasis. Biliary stent. Abdominal pain. COMPARISON: Gallbladder sonogram August 16, 2016 TECHNIQUE: Longitudinal and transverse scans of the right upper quadrant were obtained. Doppler interrogation of the hepatic and portal venous system was performed. FINDINGS: Liver: The liver is heterogeneous compatible with mild underlying hepatic parenchymal disease. There is no focal mass. The liver measures 14.3 cm in cephalocaudal dimension. Vessels: There is normal hepatic and portal venous flow. Bile ducts: There is no evidence of intrahepatic or extrahepatic ductal dilatation. The common duct measures 0.6 cm. By history there is a biliary stent in place. Gallbladder: There are multiple gallstones and there is biliary sludge. The gallbladder wall is mildly thickened measuring 0.4 cm. There is no pericholecystic fluid. Pancreas: The visualized pancreas appears normal Right kidney: The right kidney is atrophic measuring 8.1 x 4.5 x 4.4 cm. There is no mass or hydronephrosis. IVC and aorta: The aorta and superior vena cava appear normal. Fluid: There is no ascites. Other: None. IMPRESSION: 1. Heterogeneous liver suggests underlying hepatic parenchymal disease. No intraductal or significant extraductal dilatation. 2. Cholelithiasis and biliary sludge. Thickened gallbladder wall. 3. Atrophic right kidney.
[2016-09-25] MEDS ORDERED: Magnesium Sulfate 2 GM IV* 2 GM/50 ML BAG IVPB ONE (10:49)
--- NOTE | 2016-09-25 11:16 | RAD ---
INDICATION: Upper abdominal pain COMPARISON: None TECHNIQUE: An AP portable view obtained at 1045 hours is submitted. FINDINGS: Bones/Soft Tissues: There are no acute bony findings. Cardiomediastinal: The cardiomediastinal silhouette is normal. Lungs: There are no infiltrates. Pleura: There are no pleural effusions. Other: None IMPRESSION: NO ACTIVE DISEASE
--- NOTE | 2016-09-25 11:29 | RAD ---
INDICATION: Abdominal pain COMPARISON: Gallbladder sonogram September 25, 2016; CT abdomen pelvis August 15, 2016 TECHNIQUE: Noncontrast axial source images were obtained from the hemidiaphragms to the symphysis pubis. This examination was ordered without oral or intravenous contrast and therefore has inherent limitations when used to evaluate intra-abdominal or intrapelvic pathology. Consider conventional contrast enhanced imaging if clinically indicated . Coronal and sagittal reconstructed images were acquired. Lung bases: The lung bases are clear. Liver: The liver is normal in size. There are no masses. There is no ductal dilatation. Biliary stent in expected position Gallbladder: Multiple gallstones. Mild thickened gallbladder wall. No pericholecystic fluid. No significant bladder distention. Spleen: The spleen is normal in size. There are no masses. Pancreas: There is no focal pancreatic mass or ductal dilatation. There is fatty replacement. There is minor peripancreatic infiltration of fat, unchanged. Adrenal glands: There is no evidence of adrenal mass. Kidneys: The kidneys are normal in size and position. There are prompt nephrograms and there is prompt excretion bilaterally. There are no renal parenchymal masses. There is no evidence of nephrolithiasis. Adenopathy: There is no evidence of adenopathy by size criteria. Fluid collections: There are no free or localized fluid collections. Vessels:There are atherosclerotic changes involving the aorta and iliac vessels. There is no focal aneurysm. The IVC appears normal. GI tract: There are multiple fluid-filled loops of bowel. The bowel is not dilated. There is no obstruction but there may be a generalized ileus. The stomach and small bowel appear mostly normal. The lower GI tract is grossly normal. Pelvic organs: The uterus and adnexa appear normal for age. The uterus appears atrophic. Bladder: There are no bladder masses. Abdominal and pelvic soft tissues: Small fat-containing periumbilical hernia. Mild diastases of the rectus musculature.. Osseous structures: There are no acute osseous findings. Other: None IMPRESSION: 1. Limited noncontrast imaging was performed as requested. 2. Cholelithiasis. No pericholecystic fluid or significant gallbladder distention. 3. Pancreatic atrophy with fatty infiltration and minor peripancreatic stranding. The findings are stable. 4. Possible generalized ileus. 5. Small fat-containing periumbilical hernia.
[2016-09-25] MEDS ORDERED: metroNIDAZOLE IV 500 MG/100ML* 500 MG/100 ML BAG IVPB ONE (13:22)
[2016-09-25 15:40] VITALS: BP 112/48
--- NOTE | 2016-09-25 16:45 | ED ---
Simón Cardona Alfonso, scribed for Chandler Metcalf MD on 09/25/16 at 0855 . Abdominal Pain/Female - HPI Summary HPI Summary: This patient is an 81 year old female BIBA accompanied by to [facility] c/o sharp upper abdominal pain worsening since 4 days ago. She states "I am in bad shape ever since a surgery in July." She rates the pain 10/10 in severity. Sx aggravated and alleviated by nothing. Pt reports vomiting and diarrhea. Pt denies calf swelling. - History of Current Complaint Chief Complaint: EDAbdPain Stated Complaint: DIARRHEA/VOMITING Time Seen by Provider: 09/25/16 08:47 Hx Obtained From: Patient Onset/Duration: Sudden Onset, Lasting Days - 4 days ago, Still Present Timing: Constant Severity Initially: Severe Severity Currently: Severe Pain Intensity: 10 Pain Scale Used: 0-10 Numeric Location: Other - Upper Character: Sharp Aggravating Factor(s): Nothing Alleviating Factor(s): Nothing Associated Signs and Symptoms: Positive: Vomiting, Diarrhea, Other: - Negative calf swelling Allergies/Adverse Reactions: Allergies Allergy/AdvReac Type Severity Reaction Status Date / Time No Known Allergies Allergy Verified 08/15/16 03:28 PMH/Surg Hx/FS Hx/Imm Hx Endocrine/Hematology History: Denies: Hx Diabetes Cardiovascular History: Reports: Hx Hypercholesterolemia Denies: Hx Congestive Heart Failure, Hx Hypertension Respiratory History: Reports: Hx Chronic Obstructive Pulmonary Disease (COPD) GI History: Reports: Hx Ulcer - HX OF , 2 YEARS AGO, SOME DISCOMFORT STILL History: Reports: Hx Chronic Renal Failure Comment Only: Hx Renal Disease - POOR KIDNEY FUNCTION Musculoskeletal History: Reports: Hx Arthritis, Hx Back Problems, Hx Osteoporosis Denies: Hx Orthopedic Injury Sensory History: Reports: Hx Cataracts, Hx Contacts or Glasses Denies: Hx Hearing Aid Opthamlomology History: Reports: Hx Cataracts, Hx Contacts or Glasses - Cancer History Hx Chemotherapy: No Hx Radiation Therapy: No - Surgical History Surgery Procedure, Year, and Place: 1965, breast biopsy , cateracts x2 , ulcers Hx Anesthesia Reactions: No Infectious Disease History: No Infectious Disease History: Reports: Hx Clostridium Difficile, Hx Shingles Denies: Traveled Outside the [place] in Last 30 Days - Family History Known Family History: Positive: Diabetes, Renal Disease Negative: Cardiac Disease - Social History Alcohol Use: None Substance Use Type: Reports: None Smoking Status (MU): Never Smoked Tobacco Review of Systems Negative: Fever Positive: Abdominal Pain - Sharp upper abd pain, Vomiting, Diarrhea Positive: Edema - Negative calf swelling All Other Systems Reviewed And Are Negative: Yes Physical Exam Triage Information Reviewed: Yes Vital Signs On Initial Exam: Initial Vitals Temp Pulse Resp BP Pulse Ox 97.1 F 85 22 106/47 97 09/25/16 07:55 09/25/16 07:55 09/25/16 07:55 09/25/16 07:55 09/25/16 07:55 Vital Signs Reviewed: Yes Appearance: Positive: Ill-Appearing - Mildly, Pain Distress - Mild Skin: Positive: Warm, Skin Color Reflects Adequate Perfusion, Dry Head/Face: Positive: Normal Head/Face Inspection Eyes: Positive: EOMI, HANNY ENT: Positive: Normal ENT inspection Neck: Positive: Supple, Nontender Respiratory/Lung Sounds: Positive: Clear to Auscultation, Breath Sounds Present Cardiovascular: Positive: RRR Abdomen Description: Positive: Other: - Tender to palpation across the upper abdomen Bowel Sounds: Positive: Present Musculoskeletal: Positive: Normal, Strength/ROM Intact Neurological: Positive: Normal, Sensory/Motor Intact, Alert, Oriented to Person Place, Time Psychiatric: Positive: Affect/Mood Appropriate - [place] Coma Scale Coma Scale Total: 15 Diagnostics - Vital Signs Vital Signs Temp Pulse Resp BP Pulse Ox 09/25/16 08:00 82 18 96/47 98 09/25/16 07:56 83 21 91 09/25/16 07:55 97.1 F 85 22 106/47 97 - Laboratory Lab Results: Lab Results 09/25/16 09/25/16 09/25/16 Range/Units 08:09 08:09 08:09 WBC 13.7 H (3.5-10.8) 10^3/ul RBC 5.12 (4.0-5.4) 10^6/ul Hgb 14.7 (12.0-16.0) g/dl Hct 46 (35-47) % MCV 89 (80-97) fL MCH 29 (27-31) pg MCHC 32 (31-36) g/dl RDW 16 H (10.5-15) % Plt Count 265 (150-450) 10^3/ul MPV 10 (7.4-10.4) um3 Neut % (Auto) 85.0 H (38-83) % Lymph % (Auto) 6.0 L (25-47) % [place] % (Auto) 8.5 (1-9) % Eos % (Auto) 0.3 (0-6) % Baso % (Auto) 0.2 (0-2) % Absolute Neuts (auto) 11.7 H (1.5-7.7) 10^3/ul Absolute Lymphs (auto) 0.8 L (1.0-4.8) 10^3/ul Absolute Monos (auto) 1.2 H (0-0.8) 10^3/ul Absolute Eos (auto) 0 (0-0.6) 10^3/ul Absolute Basos (auto) 0 (0-0.2) 10^3/ul Absolute Nucleated RBC 0 10^3/ul Nucleated RBC % 0 INR (Anticoag Therapy) 0.94 (0.89-1.11) APTT 29.5 (26.0-36.3) seconds Sodium 138 (133-145) mmol/L Potassium 4.0 (3.5-5.0) mmol/L Chloride 107 (101-111) mmol/L Carbon Dioxide 20 L (22-32) mmol/L Anion Gap 11 (2-11) mmol/L BUN 29 H (6-24) mg/dL Creatinine 1.62 H (0.51-0.95) mg/dL Est GFR ( Amer) 39.0 (>60) Est GFR (Non-Af Amer) 30.3 (>60) BUN/Creatinine Ratio 17.9 (8-20) Glucose 182 H (70-100) mg/dL Lactic Acid (0.5-2.0) mmol/L Calcium 10.2 (8.6-10.3) mg/dL Magnesium 1.3 L (1.9-2.7) mg/dL Total Bilirubin 1.00 (0.2-1.0) mg/dL AST 13 (13-39) U/L ALT 9 (7-52) U/L Alkaline Phosphatase 102 (34-104) U/L Troponin I 0.03 (<0.04) ng/mL C-Reactive Protein 30.55 H (< 5.00) mg/L B-Natriuretic Peptide ( - 100) pg/mL Total Protein 7.9 (6.4-8.9) g/dL Albumin 3.7 (3.2-5.2) g/dL Globulin 4.2 H (2-4) g/dL Albumin/Globulin Ratio 0.9 L (1-3) Lipase 21 (11.0-82.0) U/L 09/25/16 09/25/16 Range/Units 08:09 08:09 WBC (3.5-10.8) 10^3/ul RBC (4.0-5.4) 10^6/ul Hgb (12.0-16.0) g/dl Hct (35-47) % MCV (80-97) fL MCH (27-31) pg MCHC (31-36) g/dl RDW (10.5-15) % Plt Count (150-450) 10^3/ul MPV (7.4-10.4) um3 Neut % (Auto) (38-83) % Lymph % (Auto) (25-47) % [place] % (Auto) (1-9) % Eos % (Auto) (0-6) % Baso % (Auto) (0-2) % Absolute Neuts (auto) (1.5-7.7) 10^3/ul Absolute Lymphs (auto) (1.0-4.8) 10^3/ul Absolute Monos (auto) (0-0.8) 10^3/ul Absolute Eos (auto) (0-0.6) 10^3/ul Absolute Basos (auto) (0-0.2) 10^3/ul Absolute Nucleated RBC 10^3/ul Nucleated RBC % INR (Anticoag Therapy) (0.89-1.11) APTT (26.0-36.3) seconds Sodium (133-145) mmol/L Potassium (3.5-5.0) mmol/L Chloride (101-111) mmol/L Carbon Dioxide (22-32) mmol/L Anion Gap (2-11) mmol/L BUN (6-24) mg/dL Creatinine (0.51-0.95) mg/dL Est GFR ( Amer) (>60) Est GFR (Non-Af Amer) (>60) BUN/Creatinine Ratio (8-20) Glucose (70-100) mg/dL Lactic Acid 2.4 H* (0.5-2.0) mmol/L Calcium (8.6-10.3) mg/dL Magnesium (1.9-2.7) mg/dL Total Bilirubin (0.2-1.0) mg/dL AST (13-39) U/L ALT (7-52) U/L Alkaline Phosphatase (34-104) U/L Troponin I (<0.04) ng/mL C-Reactive Protein (< 5.00) mg/L B-Natriuretic Peptide 72 ( - 100) pg/mL Total Protein (6.4-8.9) g/dL Albumin (3.2-5.2) g/dL Globulin (2-4) g/dL Albumin/Globulin Ratio (1-3) Lipase (11.0-82.0) U/L Result Diagrams: 09/25/16 08:09 09/25/16 08:09 Lab Statement: Any lab studies that have been ordered have been reviewed, and results considered in the medical decision making process. - Radiology CXR Radiology Interpretation Completed By: Radiologist - NO ACTIVE DISEASE - CT CT A/P CT Interpretation Completed By: Radiologist - 1.Limited noncontrast imaging was performed as requested. 2. Cholelithiasis. No pericholecystic fluid or significant gallbladder distention. 3. Pancreatic atrophy with fatty infiltration and minor peripancreatic stranding. The findings are stable. 4. Possible generalized ileus. 5. Small fat-containing periumbilical hernia. - EKG 0817 Cardiac Rate: NL - BPM 81 EKG Rhythm: Sinus Rhythm Ectopy: PVCs EKG Interpretation: Depressed T-waves in the lateral leads - Additional Comments Diagnostic Additional Comments: US GALL BLADDER : 1. Heterogeneous liver suggests underlying hepatic parenchymal disease. No intraductal or significant extraductal dilatation. 2. Cholelithiasis and biliary sludge. Thickened gallbladder wall. 3. Atrophic right kidney. Abdominal Pain Fem Course/Dx - Course Course Of Treatment: NO CRITICAL CARE TIME. BECAUSE THE PATIENT HAS A BILIARY STENT AND AN ABDOMINAL INFECTION, SHE REQUIRED ADMISSION AND IV ANTIBIOTICS. IF THE BILIARY STENT NEEDS TO BE REMOVED, SHE NEEDS TO BE WHERE THERE IS GI THAT CAN REMOVE THE STENT. AT THIS TIME, [facility]ES NOT HAVE A GI PROVIDER STATE'S ATTORNEY THAT CAN REMOVE THE STENT THEREFORE, THE PATIENT WAS TRANSFERED TO [facility] WHERE THERE IS GI THAT CAN REMOVE THE STENT. THIS WAS DISCUSSED WITH THE PATIENT. ACCEPTED IN TRANSFER BY DR GOMES AT [facility]. - Diagnoses Provider Diagnoses: C. difficile colitis, Abdominal pain, History of biliary duct stent placement - Provider Notifications Discussed Care Of Patient With: Laurie Byers Time Discussed With Above Provider: 12:07 Instructed by Provider To: Other - Consulted Dr. Byers (hospitalist) who suggested a GI physician be consulted. After consulting, she recommended the patient be transferred to [facility]. Consulted Dr. Chloe Gomes at [facility] who agrees to admit the pt. Discharge - Discharge Plan Condition: Fair Disposition: TRANS HIGHER LVL OF CARE FAC Referrals: Ricky Gamble MD [Primary Care Provider] - The documentation as recorded by the Simón haque Alfonso accurately reflects the service I personally performed and the decisions made by me, Chandler Metcalf MD.
--- NOTE | 2016-09-26 11:11 | PN ---
Progress Note - Progress Note Date of Service: 09/25/16 Note: Patient was diagnosed and admitted to [facility] for c diff amongst other diagnoses. stool culture results positive for c. diff. Patient was started on Zosyn and flagyl. Giardia negative. No further change or action needed at this time as already made aware of stool culture results, admission and treatment.
== END 2016-09-25 15:40 | disposition short-term general hospital (02) ==
LOC: ED 07:47
DX: K52.9 Noninfective gastroenteritis and colitis, unspecified (principal); R10.9 Unspecified abdominal pain; R11.10 Vomiting, unspecified; R19.7 Diarrhea, unspecified
CPT/HCPCS: 36415; 71010; 74176; 76705; 80053; 82272; 83605; 83690; 83735; 83880; 84484; 85025; 85610; 85730; 86140; 87045; 87046; 87077; 87186; 87328; 87329; 87493; 87899; 93005; 96374; 96375; 99285; J2270; J2405; J2543

== ENCOUNTER 2016-10-08 13:31 | Day surgery (SDC) | payer MEDICARE, OTHER ==
[~2016-10-08 13:31] MED LIST: Buffered Lidocaine 0.9% SYRIN* 5 ML/SYR SYRINGE ONE
[2016-10-08] MEDS ORDERED: Succinylcholine* 20 MG/ML 10 ML VIAL ONE (14:44)
[2016-10-08] MEDS ORDERED: Lidocaine 2% PF * 5 ML VIAL ONE (14:44)
[2016-10-08] MEDS ORDERED: Propofol* 10 MG/ML 20 ML BTL IV PUSH ONE (14:44)
[2016-10-08] MEDS ORDERED: fentaNYL* 50 MCG/ML 2 ML VIAL (100 MCG VIAL) ONE (15:12)
[2016-10-08] MEDS ORDERED: Phenylephrine IV* 40 MCG/ML 10 ML SYRINGE ONE (15:51)
[2016-10-08] MEDS ORDERED: fentaNYL* 50 MCG/ML 2 ML VIAL (100 MCG VIAL) IV PRN (16:15)
[2016-10-08] MEDS ORDERED: Ondansetron INJ* 2 MG/ML VIAL IV PRN (16:15)
--- NOTE | 2016-10-08 16:36 | RAD ---
INDICATION: Fluoroscopy was provided for ERCP COMPARISONS: CT dated September 25, 2016 TECHNIQUE: Fluoroscopy was provided for an ERCP. Total fluoroscopy time is: 96.2 seconds FINDINGS: No spot images are submitted for review. IMPRESSION: FLUOROSCOPY WAS PROVIDED FOR AN ERCP CPT II Codes: 6045F
[2016-10-08 16:54] VITALS: BP 120/42
--- NOTE | 2016-10-09 04:34 | PRO ---
DATE: 10/08/16 REFERRING PHYSICIANS: Ricky Gamble; Cesar Sheridan* PROCEDURE: ERCP with stent removal and balloon extraction of common bile duct sludge. INDICATION: This 81-year-old woman had an episode of gallstone pancreatitis 7 weeks ago. At [facility], she had an ERCP with sphincterotomy, removal of common duct stones, and placement of a stent. She has been doing well from a biliary point of view since then. Her LFTs have been normal including 10/04 and 10/07. She did, however, develop C. diff diarrhea and has been placed on vancomycin, which she finished yesterday. Her stools went from more than 6 a day down to 1, runny bowel movement a day. Concomitant Ursodiol was stopped 4 days ago. She states that she had been feeling pretty good in the last week apart from the loose stool. There has been no fever. Informed consent was obtained discussing possibilities including that of placing another stent. ENDOSCOPIST: Dr. Boyle. ANESTHESIOLOGIST: Dr. Mayo. FINDINGS: She is a moderately overweight older woman, in no distress. She was intubated and rolled into position. Appropriate areas were padded. ERCP: Esophagus - easily entered and 20% to 30% views were normal. Stomach - 40% views normal with the pylorus normal and easily entered. Duodenum - normal bulb and second to fourth portion. The stent was seen, it was grasped with a snare and removed and pulled out through the mouth. The patient was re-intubated. The papilla was seemed to draining bile. A sphincterotome was inserted and guidewire placed high up into the liver. An injection was done that showed a filling defect moving up towards the common hepatic duct. Bile and dye drained readily. With each successive injection, the possible filling defect was less evident and after just a few minutes, no filling defect could be seen, it was suspected it was mucus that just dispersed. An exchange was made for a small balloon. It was inflated to 12 mm and brought out bringing with it sludge and some debris and mucus, much of which was white, but it was not grossly pustular. Several sweeps were done and a final injection showed no filling defect and bile and dye drained readily. Procedure was terminated. IMPRESSION: 1. Status post prior endoscopic sphincterotomy. 2. Removal of common bile duct stent. 3. Balloon extraction of common bile duct sludge and debris. 4. Gallbladder stones - Definitive cholecystectomy is pending. Pending that surgery, the patient will be on a tapering vancomycin schedule every other day for 2 weeks, then every 3rd day, and then stop. [id number]/[facility] #: [id number] MTDD
== END 2016-10-08 17:15 | disposition home or self-care (01) ==
LOC: OR 13:31
PROVIDERS: ATTEND Internal Medicine Gastroenterology
DX: K85.10 Biliary acute pancreatitis without necrosis or infection (principal); K80.50 Calculus of bile duct without cholangitis or cholecystitis without obstruction; E11.9 Type 2 diabetes mellitus without complications; Z79.84 Long term (current) use of oral hypoglycemic drugs; Z87.891 Personal history of nicotine dependence; N18.9 Chronic kidney disease, unspecified; I12.9 Hypertensive chronic kidney disease with stage 1 through stage 4 chronic kidney disease, or unspecified chronic kidney disease
CPT/HCPCS: 74328; 76000; J0330; J2704; J3010

== ENCOUNTER 2016-10-23 07:32 | Inpatient (IN) | payer MEDICARE, OTHER ==
--- NOTE | 2016-10-16 16:02 | HP ---
CC: Dr. Ricky Gamble; Dr. Bennie Boyle * HISTORY AND PHYSICAL: DATE OF ADMISSION: 10/10/16 DATE OF SURGERY: 10/23/16 PATIENT OF: Cesar Sheridan MD ATTENDING SURGEON: Cesar Sheridan MD * (DICTATED BY GUME AVILES) PRIMARY CARE PHYSICIAN: Ricky Gamble MD CHIEF COMPLAINT: Symptomatic cholelithiasis. HISTORY OF PRESENT ILLNESS: Ms. Linn is a pleasant 81-year-old female who was seen in the office earlier today to discuss gallbladder surgery. The patient was admitted initially to [facility] back in late July of 2016 for gallstone pancreatitis. She presented back then to the emergency room with complaints of sudden onset of severe epigastric and right upper quadrant abdominal pain. The patient was seen in the emergency room and was found to have elevated lipase with value of 5000 as well as elevated transaminases. She had a CT scan as well as a right upper quadrant ultrasound that revealed evidence of gallstone pancreatitis for which she was admitted to the ICU. The patient unfortunately had deteriorated course of improvement and she eventually had cholangitis as well as severe sepsis requiring IV resuscitation and pressors. She was eventually transferred to [facility] back on for need of ERCP. The patient was transferred to [facility] where she had ERCP done and she was hospitalized for approximately 1 week. She eventually recovered well after that episode. She became afebrile and normotensive shortly after placement of the stent as well as aggressive IV antibiotic. She was discharged a week later and was sent to rehabilitation for approximately 2 weeks after that. The patient was placed on Cipro for a few weeks orally and she continued to do well during her short-term rehabilitation. She was seen by the [facility] and had been followed by Dr. Boyle for stent removal. It was recommended for the patient to have her stents removed 6 weeks after placement for which she was seen by Dr. Boyle and had an EGD with stent removal a week ago. She reports doing well overall since her recent episode. She returned to the office today to discuss gallbladder surgery given her known history of cholelithiasis that led to gallstone pancreatitis a couple of months ago. The patient was seen by Dr. Sheridan last week and she has been currently treated for a C. diff colitis using vancomycin orally. She denies any diarrhea or bloody stools. She has been eating well and denies any jaundice, changes in the bowel habits, or changes in the color of stool or urine. She returns to the office today to discuss surgery to avoid any future similar episodes related to known history of cholelithiasis. PAST MEDICAL HISTORY: Significant for gallstone pancreatitis, diabetes mellitus , COPD, peptic ulcer disease, hypertension, C. diff colitis as well as chronic kidney disease. PAST SURGICAL HISTORY: Significant for exploratory laparotomy with Joseph patch repair of perforated peptic ulcer back in 2010. She also had a laparoscopic ventral incisional hernia repair back in 2014. She also has history of multiple EGDs most recently 2 weeks ago with removal of common bile duct stents. She also has history of , breast biopsy, and bilateral cataract extraction. CURRENT MEDICATIONS: Her medications at home include: 1. Atorvastatin 10 mg 1 daily. 2. Pantoprazole 40 mg 1 tablet daily. 3. Pioglitazone 30 mg 1 daily. 4. Losartan potassium 100 mg once daily. 5. Metformin 500 mg 4 tablets once daily. 6. Lasix 20 mg twice weekly. 7. Fluocinonide 0.5% apply to affected area twice a day if needed. 8. Calcium 600 mg 1 tablet once daily. 9. Vancomycin 125 mg once every other day for 2 weeks and then 1 every third day for 2 weeks for recent episode of C. diff colitis. ALLERGIES: She has no known drug allergies. FAMILY HISTORY: She denies any family history of colorectal malignancies. SOCIAL HISTORY: She is a nonsmoker who lives with her . She drinks alcohol rarely and caffeine intake is minimal. REVIEW OF SYSTEMS: See HPI, otherwise negative. She denies any headache, dizziness, blurred vision, or double vision. No cough, sore throat, shortness of breath, or palpitation. No wheezing, back pain. She denies any abdominal pain, nausea, vomiting, or changes in the bowel habits. She has been treated for C. diff colitis on oral vancomycin and reports having some bloody loose stools 2 weeks ago, but denies any of these symptoms at this time. No fever, chills, night sweats, or recent weight loss. No back pain, flank pain, hematuria, dysuria, or urinary frequency. PHYSICAL EXAMINATION GENERAL: She is a pleasant, elderly female, appears comfortable and in no acute distress or discomfort at this visit. HEENT: Sclerae anicteric. PERRLA. EOMs intact. Oropharynx is pink, moist with no exudate. NECK: Supple. Trachea midline. No cervical adenopathy or thyromegaly. LUNGS: Decreased breath sounds noted bilaterally, but no rales or rhonchi. HEART: Regular rate and rhythm. Normal S1 and S2 without rubs, murmurs, or gallops. BACK: With normal curvature. No CVA tenderness. BREAST EXAM: Deferred at this time. ABDOMEN: Soft, mildly distended and nontender. No hernias, masses, or hepatosplenomegaly. There are previous scars from prior laparotomy with repair of perforated peptic ulcer. There is no evidence of ventral incisional hernia at this time. No guarding, rigidity, or rebound tenderness. Toth's sign was negative. EXTREMITIES: Without cyanosis, clubbing, or edema. NEUROLOGIC: Grossly intact. RECTAL: Deferred at this time. ASSESSMENT: An 81-year-old female with a recent history of gallstone pancreatitis, cholangitis, severe sepsis that required ICU admission and resuscitation as well as emergent ERCP who recovered well from this recent episode and presents to the office today to discuss gallbladder surgery given her known history of cholelithiasis. PLAN: We went on and discussed with the patient proceeding with a laparoscopic cholecystectomy given her recent episode of gallstone pancreatitis and cholangitis. The rationale, indications, risks, and benefits of surgery were discussed with her today. Risks include but not limited to infection, bleeding , or injury to adjacent structures. She seems to understand and wishes to proceed with surgery. We will obtain cardiac clearance, medical clearance as well as readmission testing with laboratory workup. She appears to be recovered very well from her recent episode and she has been treated currently for C. diff colitis that appears to be resolving as well. The patient will be scheduled for a laparoscopic cholecystectomy with Dr. Sheridan to be performed on 10/23/16 and we will follow her up accordingly. [facility] DOSHI [id number]/[facility] #: [id number] MTDD
[~2016-10-23 07:32] MED LIST changes: +Buffered Lidocaine 0.9% SYRIN* 5 ML/SYR SYRINGE INTRADERM ONE; -Buffered Lidocaine 0.9% SYRIN* 5 ML/SYR SYRINGE ONE
[2016-10-23] MEDS ORDERED: Bupivacaine 0.25% EPI 200,000* 30 ML SDV ONE (09:16)
[2016-10-23] MEDS ORDERED: Lidocaine 2% PF * 5 ML VIAL ONE (09:17)
[2016-10-23] MEDS ORDERED: Rocuronium* 10 MG/ML VIAL ONE (09:17)
[2016-10-23] MEDS ORDERED: Propofol* 10 MG/ML 20 ML BTL IV PUSH ONE (09:17)
[2016-10-23] MEDS ORDERED: fentaNYL* 50 MCG/ML 2 ML VIAL (100 MCG VIAL) ONE ×3 (09:33→13:00)
[2016-10-23] MEDS ORDERED: Ondansetron INJ* 2 MG/ML VIAL IV PRN ×2 (11:08→16:15)
[2016-10-23] MEDS ORDERED: Labetalol IV* 5 MG/ML 20 ML VIAL ONE (11:58)
[2016-10-23] MEDS ORDERED: Neostigmine Methylsulfate* 2 MG/2 ML SYRINGE ONE (12:01)
[2016-10-23] MEDS ORDERED: Glycopyrrolate IV* 0.2 MG/ML 1 ML VIAL ONE (12:01)
[2016-10-23] MEDS: fentaNYL* 50 MCG/ML 2 ML VIAL (100 MCG VIAL) IV PRN ×4 (12:26→12:42)
[2016-10-23] MEDS ORDERED: Nitroglycerin TAB 0.4 MG* 0.4 MG TAB ONE (12:48)
[2016-10-23] MEDS ORDERED: Aspirin TAB* 325 MG ONE (12:48)
--- NOTE | 2016-10-23 14:26 | RAD ---
AMENDED REPORT TO CORRECT ACCOUNT NUMBER Indication: Postop cholecystectomy chest pain. History of congestive heart failure and COPD. Comparison: September 25, [address] and chest radiograph. Technique: Upright AP 1403 hours Report: Suboptimal inspiration for this patient compared with the prior exam with resulting crowding of the pulmonary markings. Diffuse mild prominence of interstitial markings. No focal pulmonary lesion, pleural effusion, pneumothorax. Cardiomegaly. Mild prominence and ill-definition of the central pulmonary vasculature. Extensive RIGHT greater than LEFT chest wall subcutaneous emphysema. No free air visualized beneath the diaphragms. RIGHT upper quadrant surgical clips. IMPRESSION: The constellation of findings favors mild interstitial pulmonary edema. ORIGINAL ESIGN DATE/TIME: 10/23/16 1426 MTDD
[2016-10-23] MEDS ORDERED: Morphine INJ* 4 MG/ML 1 ML SYRINGE ONE (14:27)
[2016-10-23 14:38] LABS: BUN/Creatinine Ratio 15.6 (8-20); Calcium 8.8 mg/dL (8.6-10.3); EGFR African American 54.1 (>60); EGFR Non-African American 42.1 (>60)
[2016-10-23 14:41] LABS: Hematocrit 36 % (35-47); Hemoglobin 11.2 g/dl (12.0-16.0); Mean Corpuscular HGB Conc 32 g/dl (31-36); Mean Corpuscular Hemoglobin 28 pg (27-31); Mean Corpuscular Volume 90 fL (80-97); Mean Platelet Volume 10 um3 (7.4-10.4); Red Blood Count 3.95 10^6/ul (4.0-5.4); Red Cell Distribution Width 16 % (10.5-15); White Blood Count 8.1 10^3/ul (3.5-10.8)
[2016-10-23 14:42] LABS: Add Diff/Slide Review? Slide Review Added; Comments Flag Yes
[2016-10-23] MEDS: oxyCODONE/Acetamin 5/325 MG* TAB PO PRN (15:21)
[2016-10-23] MEDS ORDERED: Acetaminophen TAB* 325 MG PO PRN (16:15)
[2016-10-23] MEDS: Atorvastatin* 10 MG TAB PO SCH (18:04)
[2016-10-23] MEDS: Morphine INJ* 2 MG/ML 1 ML SYRINGE IV PRN (18:06)
[2016-10-23] MEDS ORDERED: Dextrose 50% Syringe 50 ML* 25 GM/50 ML SYRINGE IV PUSH PRN (18:24)
--- NOTE | 2016-10-23 20:56 | HP ---
CC: Dr. Gamble; Dr. Sheridan * HISTORY AND PHYSICAL: DATE OF ADMISSION: 10/23/16 PRIMARY CARE PROVIDER: Dr. Gamble. ATTENDING PHYSICIAN WHILE IN THE HOSPITAL: Letty Grullon DO * (report dictated by Jorge Cifuentes NP) CHIEF COMPLAINT: Chest pain. HISTORY OF PRESENT ILLNESS: Mrs. Linn is an 81-year-old female patient that presented initially today to the surgical services for a laparoscopic cholecystectomy as she has had cholangitis recently and has actually required ERCP at another facility. She went to [facility]. I will refer you to the July 2016 admission for details. She underwent an ERCP. She was having symptomatic cholelithiasis. The cholangitis cleared up. The patient was evaluated by Dr. Sheridan and his team and Dr. Boyle. The patient has had again gallstone pancreatitis and it was felt that she would benefit from a laparoscopic cholecystectomy, which she underwent today. However, postoperatively, she developed a significant amount of chest discomfort. She had crepitus bilaterally, felt to be from the CO2 use intraop. She was having a significant amount of chest pain. Dr. Mayo from [facility] did check the patient's EKG, which did show some new biphasic T waves, which were new from previous EKGs and she also gave a history of hypertension, hyperlipidemia, and diabetes. Because of this, we were asked to evaluate. In discussing with the patient and evaluating her, she states the chest pain just hurts. She does not quantify it. She states when she came started having the pain. It has been constant. She states it is worse with taking a deep breath, states it is hard to take a deep breath. She states she feels a little short of breath. She is unable to characterize the pain and she does state that the pain is constant. She was given narcotics over here, nitro and aspirin with no relief of the pain and because of this, we were asked to evaluate for possible admission. PAST MEDICAL HISTORY: Significant for: 1. Hypertension. 2. Hyperlipidemia. 3. Diabetes. 4. CKD. 5. Peptic ulcer disease. 6. She has had gallstone pancreatitis and cholangitis. PAST SURGICAL HISTORY: 1. She has had cataract extractions. 2. Tonsillectomy. 3. Breast biopsy. 4. Peptic ulcer repair. 5. She has had ventral hernia repair. 6. She has had a , D and C. MEDICATIONS: Home meds according to the list provided include: 1. Vancomycin 125 mg p.o. every other day. 2. Lasix 20 mg on Mondays and . 3. Calcium 1200 mg p.o. in the morning. 4. Lipitor 10 mg p.o. q.p.m. 5. Actos 30 mg p.o. q.p.m. 6. Protonix 40 mg daily. 7. Metformin 2000 mg p.o. q.p.m. 8. Losartan 100 mg p.o. daily. 9. Probiotic 1 capsule p.o. q.p.m. 10. Percocet 1 to 2 tabs every 6 hours as needed for pain. ALLERGIES: To medications include no known drug allergies. FAMILY HISTORY: Both her parents had heart disease. SOCIAL HISTORY: She does not smoke, does not drink. Surrogate decision maker is her . She is , has children. REVIEW OF SYSTEMS: There is no documented fever. She denied having any significant weight change. There was no double vision. She denies having any ear discharge. There is no rhinorrhea. No sore throat. No thyroid enlargement. There is chest pain per my HPI. There is shortness of breath and orthopnea. No nocturnal dyspnea. There is no abdominal pain. There is no nausea. No vomiting. No dysuria. No frequency. No seizure. No loss of consciousness. No pruritus. No skin ulcerations. Review of 14 systems was completed, all others negative. PHYSICAL EXAMINATION GENERAL: At this time, Mrs. Linn is an 81-year-old female patient. She appears to be well nourished, well developed. She does appear to be in no acute respiratory distress but she certainly does appear to be uncomfortable. VITAL SIGNS: Blood pressure 127/66, pulse 72, respirations were noted to be 22 , O2 sat was 96% on 2 L. HEENT: Head is atraumatic. Eyes: EOMs are intact. Sclerae are anicteric. Throat: Oral mucosa appears to be dry. No oropharyngeal erythema. NECK: Supple. LUNGS: Clear to auscultation bilaterally but she did have palpable crepitus on the chest wall bilaterally. HEART: Sounds S1 and S2. Regular rate and rhythm. No murmurs, rubs, or gallops. ABDOMEN: Mildly distended. There is tenderness at the incision sites. Bowel sounds are hypoactive. EXTREMITIES: Pulses 2+ throughout. She is able to move all 4 extremities with 5/5 strength. NEUROLOGIC: The patient is awake, alert, oriented x3. Tongue midline. Envelope Cutter were equal. No gross focal deficits. SKIN: Intact with the exception she has abdominal incisions that are covered. Dressing is clean, dry, and intact. LABORATORY DATA/DIAGNOSTIC STUDIES: The labs most recently WBC of 8.2, RBC of 4.13, hemoglobin of 11.9, hematocrit of 37, and platelet count of 217,000. The INR was 0.95. Sodium 138, potassium 4.4, chloride 104, bicarb 26, BUN 18, creatinine of 1.13. Her A1c is 6.9. AST 12, ALT 8. She did have a EKG today and one preop. The EKG today does show some new T wave changes in V1, 2, and 3. No ST elevations. She did have a previous EKG from 09/25/16. These T waves are now new. She did have an echo in July of this year, which showed EF 50 % to 55%. She did have a chest x-ray on 09/25/16, which showed impression, no active disease. Old medical records were reviewed. ASSESSMENT AND PLAN: Mrs. Linn is an 81-year-old female patient who presented today for a laparoscopic cholecystectomy due to the fact that she had gallstone pancreatitis done in July that caused her to become septic from cholangitis. She underwent the procedure today and postoperatively, she developed chest pain. We were asked to evaluate for admission. She will be admitted under observation status for: 1. Chest pain. Again, at this point, she does have some crepitus on exam. I think it is appropriate to get a chest x-ray. I do think that we should cycle her troponins. There is significant risk factor of coronary artery disease. In addition to this, get an EKG in the morning. Her pain now is getting better. She did receive some fentanyl from [facility], so we will continue to work with her on this. We will place her on telemetry. She got 4 baby aspirin here with PACU. We will check the troponins, if they are elevated, then obviously I will get a cardiology consult and probably an echo. We will continue to follow. 2. Hypertension. Continue meds as prescribed. 3. Hyperlipidemia. Continue with statin therapy. 4. Diabetes. She is going to be on lispro sliding scale while she is here. 5. Chronic kidney disease. We will check her creatinine tomorrow. 6. Peptic ulcer disease. Continue with PPI therapy. 7. Code status. She wishes to be full code. TIME SPENT: Time spent on the admission was approximately 60 minutes, greater than half time spent [id number] with the patient obtaining history and physical, other half time was spent going over the plan of care with the patient and implementing the plan of care. I discussed plan of care with my attending, Dr. Grullon; she is in agreement. JORGE CIFUENTES, CELIA [id number]/[facility] #: [id number] LAURA
[2016-10-23] MEDS: Heparin VIAL(*) 5000 UNITS/ML VIAL (FIVE THOUSAND) SUBCUT SCH (21:15)
[2016-10-24] MEDS: Morphine INJ* 2 MG/ML 1 ML SYRINGE IV PRN ×3 (03:41→20:22)
[2016-10-24] MEDS: Heparin VIAL(*) 5000 UNITS/ML VIAL (FIVE THOUSAND) SUBCUT SCH ×3 (05:40→21:59)
--- NOTE | 2016-10-24 05:51 | OP ---
CC: Dr. Ricky Gamble MD; Bennie Boyle MD * DATE OF OPERATION: 10/23/16 - ROOM #434 DATE OF : 31 SURGEON: Cesar Sheridan MD MANGLE PRESS CATCHER: GUME Grant. ANESTHESIOLOGIST: Dr. Mayo. ANESTHESIA: General anesthesia. PRE-OP DIAGNOSES: 1. Gallstone pancreatitis. 2. Symptomatic cholelithiasis. POST-OP DIAGNOSES: 1. Gallstone pancreatitis. 2. Symptomatic cholelithiasis. OPERATIVE PROCEDURE: Laparoscopic cholecystectomy. ESTIMATED BLOOD LOSS: 60 cc. FLUIDS: Less than 1 L crystalloid fluid given. SPECIMEN: Gallbladder. DRAINS: None. COUNT: Lap pad count and instrument count correct at the end of the procedure. INDICATIONS: The patient tolerated the procedure well, was transferred to the PACU in stable condition. She did suffer with some chest pain in the PACU, underwent an EKG, which showed some ST changes. The patient was admitted for under 24-hour admission for collection of troponins. DESCRIPTION OF PROCEDURE: The patient was identified in the preoperative area, marked, brought to the operating room, placed on the operating table in the supine position. Preoperative antibiotics were given. Sequential devices were placed on bilateral lower extremities. General anesthesia was induced. The patient's abdomen was prepped and draped in a standard surgical fashion and a time-out was performed. An incision was made in the midclavicular line just at the subcostal region on the right. This was deepened down to the anterior fascia which was elevated and a Veress needle was inserted into the abdominal cavity, which was then allowed to insufflate to a pressure of 15 mmHg. The patient tolerated the insufflation well. The Veress needle was removed, then a 5-mm trocar was inserted through this incision. Laparoscope was inserted and there was no evidence of injury from the trocar insertion. Review of the abdomen showed a veil of omentum just right of the midline from the previous ventral hernia repair. Visualization of this portion of the anterior abdominal wall was not so good, so we placed a 5 mm trocar in the right lateral position. I shifted the camera to this side and now we could place a closer to midline incision. This was made. Again, a third trocar was placed, this again was a 5 mm trocar, and this allowed the camera to be placed through this area to get a better view of the gallbladder. The gallbladder was hidden behind a veil of fat extending from the duodenum. The stomach was decompressed. A 12-mm trocar was then inserted through a subxiphoid incision and was able to be repositioned. The fundus of the gallbladder was grasped just behind a veil of fat, which was taken out with electrocautery. This allowed us to elevate this gallbladder more so above the liver and extend it superiorly. Both blunt and sharp dissection was carried out along the body of the gallbladder until the tapering and infundibulum areas was observed. We then were able to grasp this and retract it up and towards the right lower quadrant. This gave us a view of the node of Calot. We never did get a critical view of the common bile duct, but we could see node of Calot as well as cystic artery and what appeared to be a cystic duct. The peritoneum of the medial aspect of the gallbladder was taken with electrocautery over the node and up towards the lateral aspect of the liver. This view was somewhat obscured by a portion of the omentum that we had taken to see the fundus of the gallbladder. The lateral aspect of the gallbladder was taken with electrocautery at the peritoneum as well. This now allowed the gallbladder to be better grasped and retracted out of this spot to see better what appeared to be the cystic duct. The cystic artery was doubly ligated and the cystic duct appeared to be the only structure extending, but prior to clipping this we did get behind the gallbladder and extended our dissection more superiorly. We did enter into the gallbladder and small stones had fallen out. We suctioned these off. Reassured that there was only one ductal structure coming from the gallbladder and this was triply clipped and ligated and the gallbladder was removed from the liver bed and placed in the endoscopic retrieval bag and brought out through the subxiphoid port site, passed off as specimen. Attention was turned towards additional loose stones that had fallen, these were suctioned off with no difficulty, fitting through the 5 mm suction device. Review of the cystic duct stumps and cystic artery stumps showed no evidence of bleeding or bile leak. There had been some bleeding as we entered into the liver at the most fundal aspect of the dissection. This was controlled with electrocautery. Some oozing persisted and a portion of Surgicel was placed and pressure applied. We did irrigate copiously. The effluent was clear upon suctioning and hemostasis was achieved. Gauze was removed and the patient was repositioned back to neutral. Abdomen was allowed to collapse and trocars were removed under direct vision. All four skin incisions were reapproximated with 4 -0 Monocryl subcuticular sutures followed by Steri-Strips and sterile dressing. The patient tolerated the procedure well, was extubated and transferred to PACU. [id number]/[facility] #: [id number] LAURA
[2016-10-24] MEDS: Aspirin Low Dose CHEW TAB* 81 MG PO SCH (08:23)
[2016-10-24] MEDS: Omeprazole CAP* 20 MG PO SCH (08:24)
[2016-10-24] MEDS: Losartan TAB* 25 MG PO SCH (08:24)
[2016-10-24] MEDS: Insulin LISPRO* 1 UNITS UNIT SUBCUT SCH ×3 (08:37→17:13)
[2016-10-24] MEDS ORDERED: Furosemide TAB* 20 MG PO SCH (09:00)
[2016-10-24] MEDS: oxyCODONE/Acetamin 5/325 MG* TAB PO PRN ×2 (09:49→20:23)
[2016-10-24] MEDS ORDERED: Ketorolac INJ* 15 MG/ML 1 ML VIAL IV PUSH PRN (10:47)
--- NOTE | 2016-10-24 10:51 | PN ---
Progress Note - Progress Note Date of Service: 10/24/16 SOAP: Subjective: Pt seen and examined. abdominal and r shoulder pain. No nausea. Little appetite. no flatus Objective: af vss lungs clear. some subq crepitance in b/l axilla abdo: soft/ mild distension, tender with vol. guarding. dressing intact cxr noted labs noted Assessment: POD1 lap chantale, abdoa nd chest pain. no evidence of DE, likely 2ary to subq emphysema Plan: pain control oob incentive spirometer likely d/c home tomorrow
--- NOTE | 2016-10-24 10:56 | PN ---
Subjective Date of Service: 10/24/16 Interval History: Pt c/o RUQ abd pain and b/l shoulder and CP Poor appetite, No BM, or flatus yet Objective Active Medications: Acetaminophen (Tylenol Tab*) 650 mg PO Q4H PRN PRN Reason: FEVER/PAIN Aspirin (Aspirin Low Dose Tab*) 81 mg PO DAILY [facility] Last Admin: 10/24/16 08:23 Dose: 81 mg Atorvastatin Calcium (Lipitor*) 10 mg PO QPM [facility] Last Admin: 10/23/16 18:04 Dose: 10 mg Dextrose (D50w Syringe 50 Ml*) 12.5 gm IV PUSH .FOR FS < 60 - SS PRN PRN Reason: FS < 60 Furosemide (Lasix Tab*) 20 mg PO MoTh@0900 [facility] Last Admin: 10/24/16 08:23 Dose: 20 mg Heparin Sodium (Porcine) (Heparin Vial(*)) 5,000 units SUBCUT Q8HR [facility] Last Admin: 10/24/16 05:40 Dose: 5,000 units Insulin Human Lispro (Humalog*) 0 units SUBCUT AC [facility] PRN Reason: Protocol Last Admin: 10/24/16 08:37 Dose: Not Given Ketorolac Tromethamine (Toradol Inj*) 15 mg IV PUSH Q6H PRN PRN Reason: PAIN Stop: 10/24/16 23:59 Losartan Potassium ([facility]ar Tab*) [facility] Admin: 10/24/16 08:24 Dose: 100 mg Morphine Sulfate (Morphine Inj (Syringe)*) 2 mg IV Q4H PRN PRN Reason: PAIN - MILD Last Admin: 10/24/16 08:24 Dose: 2 mg Omeprazole (Prilosec Cap*) [facility] Last Admin: 10/24/16 08:24 Dose: 20 mg Ondansetron HCl (Zofran Inj*) 4 mg IV Q6H PRN PRN Reason: NAUSEA Oxycodone/Acetaminophen (Percocet 5/325 Tab*) 2 tab PO Q6H PRN PRN Reason: PAIN Last Admin: 10/24/16 09:49 Dose: 2 tab Vital Signs 10/23/16 10/23/16 10/23/16 12:20 12:25 12:26 Temperature 97.3 F Pulse Rate 82 82 Respiratory 20 22 20 Rate Blood Pressure 143/57 130/83 (mmHg) O2 Sat by Pulse 97 97 Oximetry 10/23/16 10/23/16 10/23/16 12:29 12:30 12:36 Temperature Pulse Rate 80 Respiratory 24 24 20 Rate Blood Pressure 140/61 (mmHg) O2 Sat by Pulse 97 Oximetry 10/23/16 10/23/16 10/23/16 12:42 12:45 13:00 Temperature Pulse Rate 74 74 Respiratory 20 20 22 Rate Blood Pressure 131/62 127/66 (mmHg) O2 Sat by Pulse 99 96 Oximetry 10/23/16 10/23/16 10/23/16 13:15 13:30 13:45 Temperature Pulse Rate 73 74 66 Respiratory 24 22 16 Rate Blood Pressure 126/53 127/66 122/46 (mmHg) O2 Sat by Pulse 96 96 99 Oximetry 10/23/16 10/23/16 10/23/16 14:00 14:15 14:30 Temperature 97.3 F Pulse Rate 67 69 70 Respiratory 20 22 22 Rate Blood Pressure 125/46 103/47 117/70 (mmHg) O2 Sat by Pulse 99 97 97 Oximetry 10/23/16 10/23/16 10/23/16 15:03 15:21 16:00 Temperature 97.6 F Pulse Rate 69 Respiratory 22 22 Rate Blood Pressure 130/49 (mmHg) O2 Sat by Pulse 100 100 Oximetry 10/23/16 10/23/16 10/23/16 17:21 18:06 20:02 Temperature 97.3 F Pulse Rate 91 Respiratory 24 24 16 Rate Blood Pressure 125/39 (mmHg) O2 Sat by Pulse 100 Oximetry 10/23/16 10/23/16 10/23/16 20:07 20:10 23:48 Temperature 97.7 F Pulse Rate 88 Respiratory 22 18 20 Rate Blood Pressure 135/49 (mmHg) O2 Sat by Pulse 90 Oximetry 10/24/16 10/24/16 10/24/16 00:00 03:41 03:47 Temperature 98.4 F Pulse Rate 87 Respiratory 18 16 Rate Blood Pressure 130/49 (mmHg) O2 Sat by Pulse 100 99 Oximetry 10/24/16 10/24/16 10/24/16 04:41 07:27 08:00 Temperature 98.0 F Pulse Rate 87 Respiratory 16 26 Rate Blood Pressure 124/45 (mmHg) O2 Sat by Pulse 98 98 Oximetry 10/24/16 10/24/16 10/24/16 08:24 09:24 09:49 Temperature Pulse Rate Respiratory 24 18 18 Rate Blood Pressure (mmHg) O2 Sat by Pulse Oximetry Oxygen Devices in Use Now: Nasal Cannula - at 1L Appearance: 89 yo F in NAD, AAOx3 Eyes: No Scleral Icterus, PERRLA Ears/Nose/Mouth/Throat: NL Teeth, Lips, Gums, Mucous Membranes Moist Neck: NL Appearance and Movements; NL JVP, Trachea Midline Respiratory: Symmetrical Chest Expansion and Respiratory Effort, Clear to Auscultation, - - subcu crepitus in b/l chest Cardiovascular: NL Sounds; No Murmurs; No JVD, RRR Abdominal: - - soft, diffuse tenderness, worse in RUQ, no rebound, no guarding, BS+ Lymphatic: No Cervical Adenopathy Extremities: No Clubbing, Cyanosis, - - trace pedal edema b/l Skin: No Nodules or Sclerosis, - - post op abd incisions steri stripped ,no dehiscence noted Neurological: Alert and Oriented x 3, NL Muscle Strength and Tone Result Diagrams: 10/23/16 12:52 10/23/16 12:52 Assess/Plan/Problems-Billing Assessment: 81 yo F with h/o DM, HTN, C. diff colitis( on Vancomycin PO QOD by DR. Boyle), cholangitis and gallstone pancreatitis, CKD stage 3 s/p elective lap cholecystectomy on 10/23/16 , consulted for post op CP - Patient Problems (1) Chest pain Comment: due to subcu post op emphysema EKG changes noted post op are improved Repeat trop neg will d/c telem Recommend outpatient stress test (2) DM type 2 (diabetes mellitus, type 2) Comment: Cont ISS holding metformin (3) History of laparoscopic cholecystectomy Comment: as per surgery, d/w DR. Sheridan (4) CKD stage 3 due to type 2 diabetes mellitus Comment: creat at baseline (5) Clostridium difficile colitis Comment: h/o, on Vancomycin QOD at home will increase to daily due to post op and h/o periop antibiotic tx. (6) Dyslipidemia Comment: cont Lipitor (7) HTN (hypertension) Comment: controlled, cont home losartan and Lasix (8) DVT prophylaxis Comment: heparin sc Status and Disposition: consult for med management.
[2016-10-24] MEDS: Vancomycin CAP* 125 MG CAP PO SCH (13:13)
[2016-10-24] MEDS: Atorvastatin* 10 MG TAB PO SCH (17:17)
[2016-10-25] MEDS: Morphine INJ* 2 MG/ML 1 ML SYRINGE IV PRN ×3 (01:01→10:24)
[2016-10-25 04:39] LABS: Hematocrit 33 % (35-47); Hemoglobin 10.6 g/dl (12.0-16.0); Mean Corpuscular HGB Conc 32 g/dl (31-36); Mean Corpuscular Hemoglobin 29 pg (27-31); Mean Corpuscular Volume 91 fL (80-97); Mean Platelet Volume 9 um3 (7.4-10.4); Red Blood Count 3.67 10^6/ul (4.0-5.4); Red Cell Distribution Width 16 % (10.5-15); White Blood Count 13.1 10^3/ul (3.5-10.8)
[2016-10-25 04:50] LABS: BUN/Creatinine Ratio 19.4 (8-20); Calcium 8.9 mg/dL (8.6-10.3); EGFR African American 50.8 (>60); EGFR Non-African American 39.5 (>60); Potassium 4.2 mmol/L (3.5-5.0)
[2016-10-25] MEDS: Heparin VIAL(*) 5000 UNITS/ML VIAL (FIVE THOUSAND) SUBCUT SCH ×3 (05:04→21:50)
[2016-10-25] MEDS: Insulin LISPRO* 1 UNITS UNIT SUBCUT SCH ×3 (08:51→16:51)
[2016-10-25] MEDS: Aspirin Low Dose CHEW TAB* 81 MG PO SCH (08:52)
[2016-10-25] MEDS: Losartan TAB* 25 MG PO SCH (08:52)
[2016-10-25] MEDS: Omeprazole CAP* 20 MG PO SCH (08:52)
[2016-10-25] MEDS: Vancomycin CAP* 125 MG CAP PO SCH (08:52)
[2016-10-25] MEDS ORDERED: Vancomycin CAP* 125 MG CAP PO SCH (09:00)
--- NOTE | 2016-10-25 10:22 | PN ---
Progress Note - Progress Note Date of Service: 10/25/16 SOAP: Subjective: Reports RUQ pain, relived with pain meds. Appetite still poor, but denies any nausea or vomiting. No fever or chills. Feels not being ready to go home yet. Denies chest pain or SOB. Objective: Awake and alert, sitting on chair, comfortable and in NAD VSS, afebrile Lungs CTA bilat. Heart RRR, no murmurs Abdomen soft, NT, ND. Incisions C/D/I. No guarding or rigidity. Ext. without edema Assessment: POD#2, s/p laparoscopic cholecystectomy, improving slowly Plan: Possible discharge this afternoon. F/U with surgical associates next Friday.
[2016-10-25] MEDS ORDERED: Phenol 1.4% Spray* 177 ML BTL MT PRN (17:24)
[2016-10-25] MEDS: Atorvastatin* 10 MG TAB PO SCH (18:05)
[2016-10-25] MEDS: oxyCODONE/Acetamin 5/325 MG* TAB PO PRN (21:44)
[2016-10-26 05:09] LABS: Hematocrit 29 % (35-47); Hemoglobin 9.2 g/dl (12.0-16.0); Mean Corpuscular HGB Conc 32 g/dl (31-36); Mean Corpuscular Hemoglobin 29 pg (27-31); Mean Corpuscular Volume 90 fL (80-97); Mean Platelet Volume 9 um3 (7.4-10.4); Red Cell Distribution Width 16 % (10.5-15); White Blood Count 9.2 10^3/ul (3.5-10.8)
[2016-10-26] MEDS: oxyCODONE/Acetamin 5/325 MG* TAB PO PRN (05:55)
[2016-10-26] MEDS: Heparin VIAL(*) 5000 UNITS/ML VIAL (FIVE THOUSAND) SUBCUT SCH (05:58)
[2016-10-26] MEDS: Vancomycin CAP* 125 MG CAP PO SCH (08:30)
[2016-10-26] MEDS: Aspirin Low Dose CHEW TAB* 81 MG PO SCH (08:30)
[2016-10-26] MEDS: Losartan TAB* 25 MG PO SCH (08:30)
[2016-10-26] MEDS: Omeprazole CAP* 20 MG PO SCH (08:30)
[2016-10-26] MEDS: Insulin LISPRO* 1 UNITS UNIT SUBCUT SCH (08:31)
[2016-10-26 11:36] LABS: Albumin 2.6 g/dL (3.2-5.2); BUN/Creatinine Ratio 24.3 (8-20); EGFR African American 60.4 (>60); EGFR Non-African American 46.9 (>60); Globulin 3.4 g/dL (2-4); Total Bilirubin 0.7 mg/dL (0.2-1.0)
[2016-10-26 11:56] VITALS: BP 122/36
--- NOTE | 2016-10-26 16:08 | DS ---
CC: Dr. Ricky Gamble; Dr. Bennie Boyle; [facility] DISCHARGE SUMMARY: DATE OF SURGERY AND ADMISSION: 10/23/16 DATE OF DISCHARGE: 10/26/16 HISTORY OF PRESENT ILLNESS: Ms. Linn is an 81-year-old female with a history of gallstone pancreat itis and symptomatic cholelithiasis, she was worked up as an outpatient and inpatient where she did undergo ERCP and stenting, this was done through [facility], stents were recently removed by Dr. Boyle. The patient's post hospitalization course was complicated with C. difficile and she has be en treated for this purpose. The patient was admitted on the same day of surgery, taken to the operating room, and underwent a la paroscopic cholecystectomy. Please see operative reports for details. The patient was transferred to PACU for planned discharge home. In the PACU, the patient complained of severe right shoulder and chest pain. She underwent an EKG w hich showed some ST changes and Cardiology was called to evaluate. The patient underwent serial tro ponins, which were all normal and she was admitted into the hospital to the telemetry unit with cons ultation to the hospitalist service. The patient was found on physical exam in the PACU to have sub cutaneous emphysema, and was felt this was likely secondary to the insufflation and giving her the c hest pain and shoulder pain. On postoperative day #1, the patient was tolerating a diet, continued to have severe pain, by then h er troponins were all in and negative, but the patient was not ready for discharge. She was held ov [facility] for observation and by postoperative day #2, the patient continued to complain of severe abd ominal pain, and chest pain and shoulder pain. Decision was made to keep the patient for one more d ay. She was evaluated by [facility] Adame, and pain was controlled with narcotics in the overni t period, and by postoperative day #3, the patient stated that she had no change and still had sree e abdominal pain. She had pruritus at the surgical site. She denied any nausea. Her appetite was improving. PHYSICAL EXAMINATION: On the day of discharge, the patient was afebrile, blood pressure 122/36, hea rt rate 71. Alert and oriented x3, in mild distress. Head, Ears, Eyes, Nose, and Throat: Normocep halic, atraumatic. Sclerae anicteric. Mucous membranes are dry. Lungs: Clear to auscultation bila terally. Abdomen: Soft, mild distention, tender in the epigastrium without rebound. Dressing intac t. Normoactive bowel sounds. Extremities: Tender bilateral lower extremities, but no swelling in t he calves. LABORATORY DATA: The patient underwent labs which showed a white count of 9.2 with no left shift, H and H of 9.2/29, which represented a drop. Chemistry panel within normal limits, with normal bilir ubin. Postoperative day #3, from laparoscopic cholecystectomy, complicated with subcutaneous emphysema and possibly with some bleeding from the surgical site. The patient is hemodynamically stable at this time, and plan is for discharge home. I have outlined this to her, given her my phone number to michelle portillo out to me if things worsen. She can take her dressings off when she is home, she is allowed to s hower. The patient understands. Her questions were answered. We will see her in office. She has an appointment scheduled for next week. [id number]/[facility] #: [id number]
== END 2016-10-26 13:24 | disposition home or self-care (01) | DRG 907 ==
LOC: OR 07:32 → MEDTELE 13:36 → OBSVTOIN 10-24 11:04
PROVIDERS: ADMIT Hospitalist; ATTEND Surgery
PROC: 0FT44ZZ Resection of Gallbladder, Percutaneous Endoscopic Approach (ICD-10-PCS; principal; 2016-10-23 09:00)
DX: T81.82XA Emphysema (subcutaneous) resulting from a procedure, initial encounter (principal); K85.10 Biliary acute pancreatitis without necrosis or infection; A04.7 Enterocolitis due to Clostridium difficile; E11.22 Type 2 diabetes mellitus with diabetic chronic kidney disease; N18.3 Chronic kidney disease, stage 3 (moderate); K80.80 Other cholelithiasis without obstruction; I12.9 Hypertensive chronic kidney disease with stage 1 through stage 4 chronic kidney disease, or unspecified chronic kidney disease; E78.5 Hyperlipidemia, unspecified; K27.9 Peptic ulcer, site unspecified, unspecified as acute or chronic, without hemorrhage or perforation; Z79.84 Long term (current) use of oral hypoglycemic drugs; Z79.2 Long term (current) use of antibiotics; Z79.899 Other long term (current) drug therapy; Z82.49 Family history of ischemic heart disease and other diseases of the circulatory system
CPT/HCPCS: 36415; 71010; 80048; 80053; 83690; 84484; 85025; 88304; 93005; A9270-GY; G0378; G8978-GP-CK; G8979-GP-CI; J1644; J1885; J2270; J2704; J3010

== ENCOUNTER 2017-01-12 17:13 | Emergency (ER) | payer MEDICARE, OTHER ==
[2017-01-12] MEDS ORDERED: Morphine INJ* 2 MG/ML 1 ML CARPUJECT IV ONE (17:21)
[2017-01-12] MEDS ORDERED: Ondansetron INJ* 2 MG/ML VIAL IV ONE (17:22)
[2017-01-12] MEDS ORDERED: Morphine INJ* 4 MG/ML 1 ML CARPUJECT IV ONE ×2 (17:27→18:05)
[2017-01-12] MEDS ORDERED: Morphine INJ* 4 MG/ML 1 ML CARPUJECT ONE (17:29)
--- NOTE | 2017-01-12 18:11 | ED ---
Upper Extremity Pain - HPI Summary HPI Summary: 81F presents with left shoulder/upper arm pain today. She was walking out of the ED after her was going to be admitted and she slipped on the curb and landed on her left shoulder and bilateral knees. She did hit her head too. no LOC. no nausea or vomiting. She has extreme pain in her shoulder that radiates down her humerus to her elbow. She also has knee pain but has full ROM and no edema noted. no previous injury to the area. is right handed. - History of Current Complaint Chief Complaint: EDExtremityUpper Stated Complaint: LT SHOULDER PAIN Time Seen by Provider: 01/12/17 17:14 - Allergies/Home Medications Allergies/Adverse Reactions: Allergies Allergy/AdvReac Type Severity Reaction Status Date / Time No Known Allergies Allergy Verified 10/08/16 13:37 PMH/Surg Hx/FS Hx/Imm Hx Endocrine/Hematology History: Reports: Hx Diabetes - Type II, controlled with medication, diet modification Cardiovascular History: Reports: Hx Congestive Heart Failure, Hx Hypercholesterolemia, Hx Hypertension - controlled with medication, Other Cardiovascular Problems/Disorders - HX A-FIB, Hypercholesterolemia Respiratory History: Reports: Hx Chronic Obstructive Pulmonary Disease (COPD) GI History: Reports: Hx Ulcer - HX OF , 2013?, SOME DISCOMFORT STILL, Other GI Disorders - RECENT PANCREATITIS, ERCP 10/08/16 History: Reports: Hx Chronic Renal Failure Comment Only: Hx Renal Disease - POOR KIDNEY FUNCTION Musculoskeletal History: Reports: Hx Arthritis, Hx Back Problems, Hx Osteoporosis Denies: Hx Orthopedic Injury Sensory History: Reports: Hx Cataracts - bi-lat early 2007, Hx Contacts or Glasses Denies: Hx Hearing Aid, Hx Hearing Problem Opthamlomology History: Reports: Hx Cataracts - bi-lat early 2007, Hx Contacts or Glasses - Cancer History Hx Chemotherapy: No Hx Radiation Therapy: No - Surgical History Surgery Procedure, Year, and Place: 1965,. breast biopsy ,. cateracts x2, 2008. ulcer repair Hx Anesthesia Reactions: Yes - pt. reports hallucinations after anesthesia Infectious Disease History: Reports: Hx Clostridium Difficile - in treatment now , Hx Shingles - Family History Known Family History: Positive: Diabetes, Renal Disease Negative: Cardiac Disease - Social History Alcohol Use: None Substance Use Type: Reports: None Smoking Status (MU): Former Smoker Amount Used/How Often: smoked for 45 years 1 ppd Review of Systems Negative: Fever Negative: Chest Pain Negative: Shortness Of Breath Positive: Myalgia - left shoulder, bilateral knee All Other Systems Reviewed And Are Negative: Yes Physical Exam Triage Information Reviewed: Yes Vital Signs On Initial Exam: Initial Vitals Temp Pulse Resp BP Pulse Ox 98.7 F 87 24 138/56 99 01/12/17 17:27 01/12/17 17:27 01/12/17 17:27 01/12/17 17:27 01/12/17 17:27 Vital Signs Reviewed: Yes Appearance: Positive: Pain Distress Skin: Positive: Warm, Dry Head/Face: Positive: Normal Head/Face Inspection, Other - abrasion noted on right side of face, no step off, racoon eyes, brewer sign Eyes: Positive: Normal, EOMI, HANNY, Conjunctiva Clear ENT: Positive: Normal ENT inspection, Pharynx normal, TMs normal Respiratory/Lung Sounds: Positive: Clear to Auscultation, Breath Sounds Present Cardiovascular: Positive: Normal, RRR Musculoskeletal: Positive: Other - tenderness over left humerus, good pulses, capillary refill<2 secs, able to wiggle fingers, full ROM of knees Neurological: Positive: Sensory/Motor Intact, Alert, Oriented to Person Place, Time, CN Intact II-III - except able to shrug shoulders Psychiatric: Positive: Normal - [place] Coma Scale Best Eye Response: 4 - Spontaneous Best Motor Response: 6 - Obeys Commands Best Verbal Response: 5 - Oriented Coma Scale Total: 15 Diagnostics - Vital Signs Vital Signs Temp Pulse Resp BP Pulse Ox 01/12/17 17:32 25 01/12/17 17:27 98.7 F 87 24 138/56 99 - Laboratory Result Diagrams: 01/12/17 17:32 01/12/17 17:32 Lab Statement: Any lab studies that have been ordered have been reviewed, and results considered in the medical decision making process. - Radiology shoulder Xray Interpretation: Positive (See Comments) - IMPRESSION: Surgical neck fracture of the humerus. Radiology Interpretation Completed By: Radiologist knee Xray Interpretation: Positive (See Comments) Radiology Interpretation Completed By: ED Physician - CT brain CT Interpretation: No Acute Changes - IMPRESSION: No significant change in coarse interstitial markings at the apex of the RIGHT lung compared with the December 02, 2016 CT. Small dependent RIGHT pleural effusion is either similar or decreased in size compared with the prior CT. CT Interpretation Completed By: Radiologist Course/Dx - Course Course Of Treatment: 81F presents with left shoulder/upper arm pain today. She was walking out of the ED after her was going to be admitted and she slipped on the curb and landed on her left shoulder and bilateral knees. She did hit her head too. no LOC. no nausea or vomiting. She has extreme pain in her shoulder that radiates down her humerus to her elbow. She also has knee pain but has full ROM and no edema noted. no previous injury to the area. is right handed. on exam good pulses, tenderness to left humerus with deformity to humerus. seneation grossly intact. able to move fingers. xray shows proximal neck fracture humerus. CT brain normal. spoke with dr billingsley recommends splint and pain meds and follow up with ortho. patient understands and agrees with plan. - Diagnoses Differential Diagnosis/HQI/PQRI: Positive: Fracture (Closed), Strain, Sprain Provider Diagnoses: Proximal humeral fracture - Physician Notifications Discussed Care of Patient With: dr billingsley Time Discussed With Above Provider: 19:11 - sling, call ortho office next week, pain meds Discharge - Discharge Plan Condition: Good Disposition: HOME Prescriptions: oxyCODONE/Acetamin 5/325 MG* [Percocet 5/325 TAB*] 1 tab PO Q4H PRN #30 tab MDD 6 PRN Reason: Pain Patient Education Materials: Proximal Humerus Fracture (ED) Referrals: Evon Billingsley MD [Medical Doctor] - Ricky Gamble MD [Primary Care Provider] - Additional Instructions: Keep in sling Ice Call ortho office tomorrow to set up follow up appointment Return to ED if develop any new or worsening symptoms
[2017-01-12 18:12] LABS: Hematocrit 36 % (35-47); Hemoglobin 11.8 g/dl (12.0-16.0); Mean Corpuscular HGB Conc 33 g/dl (31-36); Mean Corpuscular Hemoglobin 29 pg (27-31); Mean Corpuscular Volume 87 fL (80-97); Mean Platelet Volume 10 um3 (7.4-10.4); Red Blood Count 4.12 10^6/ul (4.0-5.4); Red Cell Distribution Width 15 % (10.5-15); White Blood Count 9.2 10^3/ul (3.5-10.8)
[2017-01-12 18:22] LABS: Albumin 3.7 g/dL (3.2-5.2); BUN/Creatinine Ratio 18.4 (8-20); Calcium 10.1 mg/dL (8.6-10.3); EGFR African American 43.7 (>60); EGFR Non-African American 33.9 (>60); Potassium 4.4 mmol/L (3.5-5.0); Total Bilirubin 0.6 mg/dL (0.2-1.0); Total Protein 7.7 g/dL (6.4-8.9)
--- NOTE | 2017-01-12 18:31 | RAD ---
Indication: Fall. Hit RIGHT eye. Comparison: July 23, 2005 Technique: Noncontrast CT vertex of skull through foramen magnum. Report: The sulci, ventricles, and basal cisterns are normal for age. Yoo matter white matter differentiation is preserved without evidence for edema. No intra or extra axial hemorrhage, mass, or fluid collection detected. Decreased density in the periventricular and subcortical white matter while non-specific is most likely due to chronic microangiopathy. Unremarkable visualized orbital contents. Unremarkable calvarium and skull base. Unremarkable scalp. The visualized paranasal sinuses and mastoid air spaces are clear. IMPRESSION: No traumatic injury or acute intracranial process evident. Mild involutional change commensurate with age and stigmata of chronic small vessel ischemic disease.
[2017-01-12] MEDS ORDERED: fentaNYL* 50 MCG/ML 2 ML VIAL (100 MCG VIAL) IV SLOW PU ONE (18:48)
--- NOTE | 2017-01-12 18:53 | RAD ---
Indication: Fall. Bilateral knee pain. Comparison: No relevant prior exams available on the [facility] PACS for comparison. Technique: AP and crosstable lateral views of the knees. Report: Both knees demonstrate normal alignment. Negative for effusions or fracture. Unremarkable soft tissue contours. IMPRESSION: No traumatic injury of the RIGHT or LEFT knee evident.
--- NOTE | 2017-01-12 18:58 | RAD ---
Indication: LEFT shoulder pain post fall. Comparison: No relevant prior exams available on the [facility] [place]ACS for comparison. Technique: 4 views of the LEFT shoulder were obtained. Report: Bone density appears decreased throughout. Impacted surgical neck fracture with mild apex anterior angulation. Negative for additional fracture. Normal acromioclavicular and glenohumeral joint alignment. Suggestion of os acromiale variant. Suggestion of subchondral cystic change and sclerosis at the superior margin of the humeral head. Moderate acromial clavicular joint osteoarthritis. IMPRESSION: Surgical neck fracture of the humerus.
[2017-01-12] MEDS ORDERED: oxyCODONE/Acetamin 5/325 MG* TAB PO ONE (19:25)
[2017-01-12 20:46] VITALS: BP 129/37
== END 2017-01-12 20:49 | disposition home or self-care (01) ==
LOC: ED 17:13
DX: S42.202A Unspecified fracture of upper end of left humerus, initial encounter for closed fracture (principal); M25.561 Pain in right knee; M25.562 Pain in left knee; E11.9 Type 2 diabetes mellitus without complications; W19.XXXA Unspecified fall, initial encounter; Y93.9 Activity, unspecified; Y92.9 Unspecified place or not applicable; Z87.891 Personal history of nicotine dependence
CPT/HCPCS: 36415; 70450; 80053; 85025; 85610; 85730; 96374; 96375; 99283; A9270-GY; J2270; J2405; J3010

== ENCOUNTER 2018-07-05 05:09 | Emergency (ER) | payer MEDICARE, OTHER ==
--- OUTSIDE RECORDS SUMMARY | 2018-07-05 05:26 | XMS REPORT | Continuity of Care Document ---
:1935 External Reference #:[id number] Author Name Xavi Delgado, OD Address [address] [place] [address] Care Team Providers Name Role Phone Ricky Gamble MD Care Team Information Emergency Room Tech Unavailable Tye VILLALPANDO, Ricky Primary Care Physician Unavailable Payers Date Identification Numbers Payment Provider Subscriber Policy Number: [id number] [employer] [place] Karime Linn PayID: [id number] [address] [place] [address] Policy Number: [id number] [employer] Pos Karime Linn PayID: [id number] [address] [place] [address] Advance Directives Description No Information Available Problems Date Description Provider Status Onset: 12/15/2014 Epiretinal membrane Bennie Gordon M.D. Active Onset: 12/15/2014 Presence of intraocular lens Bennie Gordon M.D. Active Onset: 12/15/2014 Type 2 diabetes mellitus Bennie Gordno M.D. Active Family History Date Family Member(s) Observation Comments General Cancer General Heart Disease General Sister, Brother Father Heart Disease Father Heart Failure Mother Heart Disease Mother Heart Failure Social History Type Date Description Comments Sex Unknown ETOH Use Denies alcohol use Tobacco Use Start: Unknown End: Unknown Patient is a former smoker Smoking Status Reviewed: 06/22/18 Patient is a former smoker Allergies, Adverse Reactions, Alerts Description No Known Drug Allergies Medications Medication Date Status Form Strength Qnty SIG Indications Ordering Provider Furosemide Active Tablets 20mg Unknown [address] 40mg Unknown Sodium 00 Glipizide ER Active Tablets ER 10mg Unknown 00 24HR Losartan Active Tablets 100-25mg Unknown Potassium/Hydroc 00 hlorothiazide Calcium 1200+D3 Active Tablets ER 600-40-500m Unknown 00 24HR g-mg-Unit Atorvastatin Active Tablets 10mg Unknown Calcium 00 Probiotic Active Capsules Unknown 00 Metformin HCL Active Tablets 500mg Unknown 00 Immunizations Description No Information Available Vital Signs Date Vital Result Comment 06/22/2018 9:31am Intraocular Pressure Right Eye 15 mmHg Intraocular Pressure Left Eye 15 mmHg 12/15/2014 9:14am Intraocular Pressure Right Eye 18 mmHg Intraocular Pressure Left Eye 18 mmHg Results Description No Information Available Procedures Date Code Description Status 06/22/2018 93315 Oct Retina Completed 06/22/2018 31607 Refraction Completed 06/22/2018 54095 Eye Exam Est Comprehensive Completed 06/20/2017 28101 Ophthalmoscopy Subsequent Completed 06/20/2017 13890 Oct Retina Completed 06/20/2017 11177 Refraction Completed 06/20/2017 87867 Eye Exam Est Comprehensive Completed 12/15/2014 44259 Oct Retina Completed 12/15/2014 42421 Eye Exam New Comprehensive Completed Encounters Description No Information Available Plan of Treatment 06/22/2018 - Xavi Delgado, ODE11.9 Type 2 diabetes mellitus without [id number] Puckering of macula, right eyeZ96.1 Presence of intraocular lensH52.4 [id number] Other hereditary corneal dystrophiesFollow up:yearly full, sooner PRN
[2018-07-05 06:45] LABS: ABS Basophils 0.1 10^3/ul (0-0.2); ABS Eosinophils 0.2 10^3/ul (0-0.6); ABS Lymphocytes 1.9 10^3/ul (1.0-4.8); ABS Monocytes 0.8 10^3/ul (0-0.8); ABS Nucleated RBC 0 10^3/ul; Eosinophil % 2.3 %; Hematocrit 36 % (33-41); Hemoglobin 11.9 g/dL (12.0-16.0); Lymphocyte % 20.9 %; Mean Corpuscular HGB Conc 33 g/dL (31-36); Mean Corpuscular Hemoglobin 29 pg (27-31); Mean Corpuscular Volume 89 fL (80-97); Mean Platelet Volume 9.1 fL (7.4-10.4); Nucleated Red Blood Cells % 0; Platelet Count 285 10^3/uL (150-450); Red Blood Count 4.08 10^6 /uL (3.70-4.87); Red Cell Distribution Width 15 % (10.5-15)
--- NOTE | 2018-07-05 06:52 | ED ---
Abdominal Pain/Female - HPI Summary HPI Summary: Patient is an 83-year-old female with a history of hypertension and biliary pancreatitis presents to the ED with diffuse abdominal and back pain present times several months. She states this is usually intermittent, lasting several minutes to hours per day, however every day. Since yesterday, she states this has been constant. She endorses nausea and one episode of vomiting yesterday. She also endorsed 2 episodes of darker stools, however today she had a normal bowel movement which is not dark in color. She denies any nausea currently. Denies any fevers, sweats, chills. She denies any urinary symptoms. She does endorse low back pain, but states this is at her baseline and it's been present times several years. She has a follow-up with a GI specialist next week. She states last CT scan was approximately 2 years ago and was normal. However, a subsequent gallbladder ultrasound reveal a biliary pancreatitis with a cholecystectomy. This was done by Dr. Sheridan in 2017. Patient denies any chest pain or shortness of breath. She endorses weakness, however again this is at her baseline. - History of Current Complaint Chief Complaint: EDAbdPain Stated Complaint: "ABD/BACK PAIN" PER PT Time Seen by Provider: 07/05/18 06:14 Hx Obtained From: Patient, Family/Machine Gunner ?: No Onset/Duration: Gradual Onset, Still Present, Worse Since - Yesterday Timing: Constant Severity Initially: Moderate Severity Currently: Moderate Pain Intensity: 5 Pain Scale Used: 0-10 Numeric Location: Diffuse Radiates: No Aggravating Factor(s): Nothing Alleviating Factor(s): Nothing Associated Signs and Symptoms: Positive: Negative - Risk Factors Ectopic Risk Factor: Negative Ovarian Torsion Risk Factor: Negative Allergies/Adverse Reactions: Allergies Allergy/AdvReac Type Severity Reaction Status Date / Time No Known Allergies Allergy Verified 07/05/18 06:32 PMH/Surg Hx/FS Hx/Imm Hx Previously Healthy: Yes Endocrine/Hematology History: Reports: Hx Diabetes - Type II, controlled with medication, diet modification Cardiovascular History: Reports: Hx Angina, Hx Congestive Heart Failure, Hx Hypercholesterolemia, Hx Hypertension - controlled with medication, Other Cardiovascular Problems/Disorders - HX A-FIB, Hypercholesterolemia Denies: Hx Coronary Artery Disease, Hx Myocardial Infarction, Hx Valvular Heart Disease Respiratory History: Reports: Hx Chronic Obstructive Pulmonary Disease (COPD) Denies: Hx Asthma GI History: Reports: Hx Ulcer - HX OF , 2013?, SOME DISCOMFORT STILL, Other GI Disorders - RECENT PANCREATITIS, ERCP 10/08/16 History: Reports: Hx Chronic Renal Failure Comment Only: Hx Renal Disease - POOR KIDNEY FUNCTION Musculoskeletal History: Reports: Hx Arthritis, Hx Back Problems, Hx Osteoporosis Denies: Hx Orthopedic Injury Sensory History: Reports: Hx Cataracts - bi-lat early 2007, Hx Contacts or Glasses Denies: Hx Hearing Aid, Hx Hearing Problem Opthamlomology History: Reports: Hx Cataracts - bi-lat early 2007, Hx Contacts or Glasses - Cancer History Hx Chemotherapy: No Hx Radiation Therapy: No - Surgical History Surgery Procedure, Year, and Place: 1965,. breast biopsy ,. cateracts x2, 2008. ulcer repair Hx Anesthesia Reactions: Yes - pt. reports hallucinations after anesthesia - Immunization History Date of Tetanus Vaccine: unknown Date of Influenza Vaccine: UTD Hx Pertussis Vaccination: No Immunizations Up to Date: Yes Infectious Disease History: No Infectious Disease History: Reports: Hx Clostridium Difficile - in treatment now , Hx Shingles Denies: Hx Hepatitis, Hx Human Immunodeficiency Virus (HIV), Hx of Known/ Suspected MRSA, History Other Infectious Disease, Traveled Outside the [place] in Last 30 Days - Family History Known Family History: Positive: Diabetes, Renal Disease Negative: Cardiac Disease - Social History Occupation: Unemployed Lives: With Family Alcohol Use: None Hx Substance Use: No Substance Use Type: Reports: None Hx Tobacco Use: Yes Smoking Status (MU): Former Smoker Amount Used/How Often: smoked for 45 years 1 ppd Review of Systems Constitutional: Negative Negative: Fever, Chills, Fatigue, Skin Diaphoresis Negative: Palpitations, Chest Pain Negative: Shortness Of Breath, Cough Positive: Abdominal Pain, Vomiting, Nausea. Negative: Diarrhea Genitourinary: Negative Positive: no symptoms reported, see HPI. Negative: burning, dysuria, discharge , hematuria Negative: Arthralgia, Myalgia Skin: Negative Negative: Rash, Bruising Positive: Weakness. Negative: Paresthesia, Numbness Psychological: Normal All Other Systems Reviewed And Are Negative: Yes Physical Exam - Summary Physical Exam Summary: Patient appears well and in no acute distress Appearance: WDW, comfortable, pleasant, alert Skin: Soft dry skin, no lesions. Nailbeds pink with no cyanosis or clubbing. No petechia noted. Eyes: HANNY, EOMI, Conjunctiva pink with no redness or exudates. Mouth: Dentition without lesions. Moist mucosa Neck: Full range of motion. Palpable thyroid. Trachea at midline. No lymphadenopathy. Pulm: Chest symmetrical expansion. No deformities on posterior chest wall. Lungs clear to auscultation and percussion, without adventitious sounds. CV: No JVD. No deformities on anterior chest wall. Heart sounds. RRR. Normal S1 and single S2. No S3, S4, rubs, or murmurs. Carotids 2+ bilaterally without bruits. . exam not performed GI: Bowel sounds WNL in all 4 quadrants. Pain with light palpation in all 4 quadrants. Musculoskeletal: Flexion and extension of neck without limitations. ROM WNL in all extremities. No deformities noted. Pulses +2 bilaterally. Neuro: Motor strength is 5/5 in upper and lower extremities bilaterally. A&OX3 Psych: Logical, coherent Triage Information Reviewed: Yes Vital Signs On Initial Exam: Initial Vitals Temp Pulse Resp BP Pulse Ox 98.4 F 60 16 132/55 99 07/05/18 05:15 07/05/18 05:15 07/05/18 05:15 07/05/18 05:15 07/05/18 05:15 Vital Signs Reviewed: Yes Appearance: Positive: Well-Appearing, Well-Nourished Skin: Positive: Warm, Skin Color Reflects Adequate Perfusion Head/Face: Positive: Normal Head/Face Inspection Eyes: Positive: EOMI, Conjunctiva Clear Neck: Positive: Supple, No Lymphadenopathy Respiratory/Lung Sounds: Positive: Clear to Auscultation, Breath Sounds Present Cardiovascular: Positive: RRR, Pulses are Symmetrical in both Upper and Lower Extremities Abdomen Description: Positive: Other: - Tenderness throughout all quadrants on my palpation. Negative: CVA Tenderness (R), CVA Tenderness (L) Bowel Sounds: Positive: Present Musculoskeletal: Positive: Normal, Strength/ROM Intact Neurological: Positive: Sensory/Motor Intact, Alert, Oriented to Person Place, Time, Speech Normal Psychiatric: Positive: Affect/Mood Appropriate AVPU Assessment: Alert Diagnostics - Vital Signs Vital Signs Temp Pulse Resp BP Pulse Ox 07/05/18 06:26 56 99 07/05/18 06:25 52 98 07/05/18 05:15 98.4 F 60 16 132/55 99 - Laboratory Lab Results: Lab Results 07/05/18 Range/Units 06:32 WBC 9.0 (3.5-10.8) 10^3/uL RBC 4.08 (3.70-4.87) 10^6 /uL Hgb 11.9 L (12.0-16.0) g/dL Hct 36 (33-41) % MCV 89 (80-97) fL MCH 29 (27-31) pg MCHC 33 (31-36) g/dL RDW 15 (10.5-15) % Plt Count 285 (150-450) 10^3/uL MPV 9.1 (7.4-10.4) fL Neut % (Auto) 67.1 % Lymph % (Auto) 20.9 % [place] % (Auto) 8.7 % Eos % (Auto) 2.3 % Baso % (Auto) 1.0 % Absolute Neuts (auto) 6.0 (1.5-7.7) 10^3/ul Absolute Lymphs (auto) 1.9 (1.0-4.8) 10^3/ul Absolute Monos (auto) 0.8 (0-0.8) 10^3/ul Absolute Eos (auto) 0.2 (0-0.6) 10^3/ul Absolute Basos (auto) 0.1 (0-0.2) 10^3/ul Absolute Nucleated RBC 0 10^3/ul Nucleated RBC % 0 Result Diagrams: 07/05/18 06:32 07/05/18 06:32 Lab Statement: Any lab studies that have been ordered have been reviewed, and results considered in the medical decision making process. Abdominal Pain Fem Course/Dx - Course Course Of Treatment: During the course of treatment, the patient is evaluated for abdominal pain which is diffuse and aching. She states been present times several months, however since yesterday has remained constant. Normal bowel movement yesterday. One episode of emesis yesterday, but denies any nausea or vomiting today. No blood in stool. No hematemesis. CT abdomen/pelvis obtained which shows no acute findings. EKG obtained which shows sinus bradycardia with borderline repull abnormality, anterolateral leads, ST depression. No acute changes. Rate of 47. Labs are WNL. UA is WNL. Discussed treatment options with the patient. Patient states she would like to go home and follow-up with GI specialist in 2 days as scheduled. She has had this pain continuous times several months to years (per patient), I am not at this time concern for an ischemic bowel. She is given strict return precautions for any bleeding, worsening abdominal pain or weakness. She understands return precautions and family is at bedside stating they are comfortable with plan and discharge. - Diagnoses Differential Diagnosis: Positive: Other - UTI, chronic abdominal pain, constipation Provider Diagnoses: Chronic abdominal pain Discharge - Sign-Out/Discharge Documenting (check all that apply): Patient Departure Patient Received Moderate/Deep Sedation with Procedure: No - Discharge Plan Condition: Stable Disposition: HOME Patient Education Materials: Acute Abdominal Pain (ED) Referrals: Ricky Gamble MD [Primary Care Provider] - Additional Instructions: As discussed, please follow-up with your GI specialist on Friday You may try [id number] Gas-X for any discomfort You may also try Pepto-Bismol Please return to the ED if you develop any black or tarry stools, weakness, dizziness or worsening abdominal pain - Billing Disposition and Condition Condition: STABLE Disposition: Home
[2018-07-05 06:53] LABS: Urine Appearance Cloudy; Urine Bacteria Absent (Absent); Urine Bilirubin Negative (Negative); Urine Blood Negative (Negative); Urine Color Yellow; Urine Glucose Negative (Negative); Urine Ketones Negative (Negative); Urine Nitrite Positive (Negative); Urine Protein Negative (Negative); Urine Red Blood Cell Trace(0-2/hpf) (Absent); Urine Specific Gravity 1.011 (1.010-1.030); Urine Squamous Epithelial Cell Present (Absent); Urine Urobilinogen Negative (Negative); Urine White Blood Cell 1+(6-10/hpf) (Absent)
[2018-07-05 06:53] LABS: INR 0.99 (0.77-1.02)
[2018-07-05 06:57] LABS: ALT 15 U/L (7-52); AST 19 U/L (13-39); Albumin 3.6 g/dL (3.2-5.2); Albumin/Globulin Ratio 0.9 (1-3); Alkaline Phosphatase 170 U/L (34-104); Anion Gap 8 mmol/L (2-11); BUN/Creatinine Ratio 16.5 (8-20); Blood Urea Nitrogen 20 mg/dL (6-24); C Reactive Protein < 1.00 mg/L (<8.01); CO2 Carbon Dioxide 24 mmol/L (22-32); Calcium 9.7 mg/dL (8.6-10.3); Chloride 108 mmol/L (101-111); EGFR African American 51.2 (>60); EGFR Non-African American 42.3 (>60); Globulin 3.9 g/dL (2-4); Glucose 111 mg/dL (70-100); Magnesium 1.6 mg/dL (1.9-2.7); Potassium 4.3 mmol/L (3.5-5.0); Sodium 140 mmol/L (135-145); Total Protein 7.5 g/dL (6.4-8.9)
[2018-07-05 06:58] LABS: Troponin I 0.01 ng/mL (<0.04)
[2018-07-05 08:13] VITALS: BP 138/54
--- NOTE | 2018-07-07 06:18 | PN ---
Progress Note - Progress Note Date of Service: 07/05/18 Note: Urine culture preliminary Klebsiella pneumonia 100,000 Patient was placed on antibiotics prior to discharge We will await sensitivities
--- NOTE | 2018-07-08 06:18 | PN ---
Progress Note - Progress Note Date of Service: 07/08/18 Note: Patient's urine culture grew Klebsiella pneumonia greater than 100,000. Place patient on Augmentin 500 mg twice a day 3 days. Called daughter to inform of change.
== END 2018-07-05 08:16 | disposition home or self-care (01) ==
LOC: ED 05:09
DX: R10.9 Unspecified abdominal pain (principal); G89.29 Other chronic pain; R94.31 Abnormal electrocardiogram [ECG] [EKG]; I13.0 Hypertensive heart and chronic kidney disease with heart failure and stage 1 through stage 4 chronic kidney disease, or unspecified chronic kidney disease; E11.22 Type 2 diabetes mellitus with diabetic chronic kidney disease; N18.9 Chronic kidney disease, unspecified; I50.9 Heart failure, unspecified; E78.00 Pure hypercholesterolemia, unspecified; J44.9 Chronic obstructive pulmonary disease, unspecified; Z79.899 Other long term (current) drug therapy; Z87.891 Personal history of nicotine dependence; Z90.49 Acquired absence of other specified parts of digestive tract
CPT/HCPCS: 36415; 74176; 80053; 81003; 81015; 83605; 83690; 83735; 84484; 85025; 85610; 86140; 87077; 87086; 87186; 93005; 99282

== ENCOUNTER 2018-12-07 10:09 | Emergency (ER) | payer MEDICARE, OTHER ==
--- OUTSIDE RECORDS SUMMARY | 2018-12-07 10:14 | XMS REPORT | Continuity of Care Document ---
:1935 External Reference #:[id number] Author Name Ricky Gamble M.D. Address [address] [place] [id number] Care Team Providers Name Role Phone [facility] - Care Team Information [employer] Machinist [phone] Gastroenterology Amy Zafar MD - Geriatric Care Team Information [employer] Medicine Cesar Sheridan MD - Surgery Care Team Information [employer]inist [phone] Rocael Morales MD - Gastroenterology Care Team Information [employer] Problems Active Problems Provider Date Type 2 diabetes mellitus Ricky Gamble M.D. Onset: 04/16/2011 Benign essential hypertension Ricky Gamble M.D. Onset: 04/16/2011 Chronic obstructive lung disease Ricky Gamble M.D. Onset: 04/16/2011 Osteochondropathy Ricky Gamble M.D. Onset: 07/22/2011 Left lower quadrant pain Veronica Thorpe MD Onset: 09/17/2012 Changes in skin texture Veronica Thorpe MD Onset: 09/17/2012 Bite of nonvenomous arthropod Vitaliy Villalobos D.O. Onset: 10/26/2012 Bladder muscle dysfunction - overactive Vitaliy Villalobos D.O. Onset: 2012 Pure hypercholesterolemia Ricky Gamble M.D. Onset: 07/18/2014 Essential hypertension Ricky Gamble M.D. Onset: 01/17/2015 Chronic kidney disease stage 3 Ricky Gamble M.D. Onset: 05/12/2017 Chronic diastolic heart failure Vitaliy Villalobos D.O. Onset: 07/03/2018 Osteoporosis Ricky Gamble M.D. Onset: 12/01/2018 Social History Type Date Description Comments Sex Unknown Tobacco Use Start: Unknown End: Unknown Former Cigarette Smoker Quit 1992 ETOH Use Denies alcohol use Recreational Drug Use Denies Drug Use Tobacco Use Start: Unknown Non Smoker Smoking Status Reviewed: 07/03/18 Non Smoker Allergies, Adverse Reactions, Alerts Active Allergies Reaction Severity Comments Date Metronidazole and Related Rash on arms and chest 01/11/2013 Repaglinide Hives 01/20/2015 Inactive Allergies NKDA 06/21/2005 Medications Active Medications SIG Qnty Indications Ordering Date Provider PT For R Hip And Leg suspect lumbar M54.5 Ricky Gamble, 12/01/2018 Pain source, possible M.D. trochanteric bursitis vs itb source pain; please evaluate and treat, instruct in hep, modalities prn M25.551 M79.604 Atorvastatin Calcium take one tablet by 90tabs Ricky Gamble, 2018 40mg mouth every day for M.D. Tablets cholesterol and to lower risk of heart attacks Losartan Potassium take one tablet by 90tabs I10 Ricky Gamble, 2018 50mg mouth every day for M.D. Tablets high blood pressure Metoprolol Succinate take one tablet by 90tabs I25.10 Ricky Gamble, ER mouth every day for M.D. 25mg Tablets ER 24HR heart I21.4 Metformin HCL ER 2 by mouth every E11.65 Ricky Gamble M.D. 04/15/2018 500mg evening; for blood Tablets ER 24HR sugar control E11.9 Elocon apply to affected 50gm S40.862A Tye, 12/27/2017 0.1% Cream areas twice a day as Hoang García needed for itch Loratadine 1 tab by mouth daily 30caps S40.862A Tye, 12/27/2017 10mg as needed for Hoang García Capsules allergy/itch Amlodipine Besylate take 1 tablet daily 90tabs Tye, 12/12/2017 5mg in the evening for Hoang García Tablets raynaud's syndrome Spironolactone take one tablet by 90tabs R60.0 Tye, 09/09/2017 25mg mouth every morning Ricky, M.D. Tablets for edema and high blood pressure Fluocinonide apply sparingly to 30gm L29.2 Silcoff, 11/28/2015 0.05% involved area on Hoang García Cream vulva up to 2x/day as needed for itch; use only intermittently Econazole Nitrate apply to affected 30gm B35.3 Silcoff, 01/17/2015 1% area between involved Hoang García Cream toes once daily Triamcinolone apply a thin layer to 30gm B35.3 Silco, 01/17/2015 Acetonide affected area between Hoang García 0.1% Cream toes 2x/day as needed for itch Pantoprazole Sodium take one tablet by 90tabs K27.1 Tye, 07/13/2013 mouth every day Hoang García 40mg Tablets DR Garvey Ultrasoft Test In The Morning 100units Tye, 03/21/2013 Lancets And Later In The Day Hoang García Misc If Needed / as Directed Mare Ultra Blue Use Once Daily And as 100units E11.65 Tye, 2010 Needed For Monitoring Hoang García Strips Blood Sugar One-Touch Ultra Soft use as directed, for 100units E11.9 Tye, 2005 Lancets monitoring blood Hoang García Lancets sugars in the morning (and later in the day if needed) History Medications Famotidine take one tablet 30tabs R19.5 Vitaliy Villalobos, 07/03/2018 - 40mg by mouth every D.O. 11/30/2018 Tablets evening for acid reflux Medications Administered in Office Medication SIG Qnty Indications Ordering Provider Date injection, kenalog, 10 mg Ricky Gamble M.D. 08/10/2016 Injection Immunizations CPT Code Status Date Vaccine Lot # [id number] Given 12/12/2017 Influenza Vaccine Split Virus Preservative [place] 00717 Given 12/27/2016 Influenza Vaccine Split Virus Preservative Free Im Use 26518 Given 12/20/2015 Influenza Vaccine Split Virus Preservative Free Im Use 30694 Given 12/21/2014 Influenza Vaccine Split Virus Preservative [place] 81714 Given 12/17/2013 Influenza Vaccine Split Virus Preservative Free Im Use 65586 Given 01/06/2013 Flu, Split Virus 3Yrs 17734 Given 12/23/2011 Flu, Split Virus 3Yrs 04180 Given 01/13/2006 Flu, Split Virus 3Yrs [id number] 88637 Given 01/23/2005 Flu, Split Virus 3Yrs 96326 Given 01/09/1999 Pneumococcal Immunization 23960 Refused 12/12/2017 Shingrix Zoster (Shingles) Vaccine (HZV) Recomb,Subnit,Adjuvanted 47461 Refused 10/17/2014 Prevnar 13 32904 Refused 04/16/2011 Zostavax 40432 Refused 11/13/2010 Adacel or Boostrix, TDaP Vital Signs Date Vital Result Comment 12/01/2018 2:01pm BP Systolic 130 mmHg BP Diastolic 52 mmHg Height 63 inches 5'3" Weight 158.00 lb BMI (Body Mass Index) 28.0 kg/m2 Results Test Date Facility Test Result H/L Range Note Urine Micro Inhouse 12/01/2018 In House [facility] WBC 10-12 1 Ua RBC - Ua Casts - Ua Epi 0-2 Ua Other many bacteria Ua Glucose - Ua Bilirubin - Ua Ketones - Ua Specific [place] 1.010 Ua Blood - Ua PH 6.0 Ua Protein - Ua Urobilinogen - Ua Nitrite + Ua Leukocytes 2+ Urine Microalbumin 12/01/2018 [facility] Ur Microalbumin < 15.0 mg/L 2 Random [phone] (mg/L) Urine Creatinine 67.78 mg/dL Urine Microalbumin/Creatinine TNP <31 3 Laboratory test 12/01/2018 In House Hemoglobin A1c 6.1 finding CBC No Diff 08/04/2018 [facility] White Blood Count 10.1 Normal 3.5- 10. [phone] 10^3/uL 8 Red Blood Count 4.30 10^6/uL Normal 3.70-4.87 Hemoglobin 12.3 g/dL Normal 12.0-16.0 Hematocrit 38 % Normal 35-47 Mean Corpuscular Volume 88 fL Normal 80-97 Mean Corpuscular Hemoglobin 29 pg Normal 27-31 Mean Corpuscular HGB Conc 33 g/dL Normal 31-36 Red Cell Distribution Width 15 % Normal 10.5-15 Platelet Count 323 10^3/uL Normal 150-450 Mean Platelet Volume 9.3 fL Normal 7.4-10.4 Laboratory test 07/17/2018 [facility] Clotest SEE RESULT 4 finding [phone] BELOW Urine Culture And 07/05/2018 [facility] Urine Culture SEE RESULT 5 Sensitivities [phone] BELOW Laboratory test 07/05/2018 [facility] Lactic Acid 1.7 mmol/L Normal 0.5-2. 6 finding [phone] Inr/Protime 07/05/2018 [facility] Inr 0.99 Normal 0.77-1 [phone] .02 Urinalysis Profile 07/05/2018 [facility] Urine Color Yellow [phone] Urine Appearance Cloudy Urine Specific [place] 1.011 Normal 1.010-1.030 Urine pH 5.0 Normal 5-9 Urine Urobilinogen Negative Negative Urine Ketones Negative Negative Urine Protein Negative Negative Urine Leukocytes Trace Abnormal Negative Urine Blood Negative Negative Urine Nitrite Positive Abnormal Negative Urine Bilirubin Negative Negative Urine Glucose Negative Negative Urine White Blood Cell 1+(6-10/hpf) Abnormal Absent Urine Red Blood Cell Trace(0-2/hpf) Absent Urine Bacteria Absent Absent Urine Squamous Epithelial Cell Present Abnormal Absent Laboratory test finding 07/05/2018 [facility] Magnesium 1.6 mg/dL Low 1.9-2.7 [phone] Lipase 17 U/L Normal 11.0-82.0 C Reactive Protein < 1.00 mg/L Normal <8.01 Troponin-I (TnI) 0.01 ng/mL <0.04 7 Comp Metabolic Panel 07/05/2018 [facility] Sodium 140 mmol/L Normal 135-145 [phone] Potassium 4.3 mmol/L Normal 3.5-5.0 Chloride 108 mmol/L Normal 101-111 Co2 Carbon Dioxide 24 mmol/L Normal 22-32 Anion Gap 8 mmol/L Normal 2-11 Glucose 111 mg/dL High 70-100 Blood Urea Nitrogen 20 mg/dL Normal 6-24 Creatinine 1.21 mg/dL High 0.51-0.95 BUN/Creatinine Ratio 16.5 Normal 8-20 Calcium 9.7 mg/dL Normal 8.6-10.3 Total Protein 7.5 g/dL Normal 6.4-8.9 Albumin 3.6 g/dL Normal 3.2-5.2 Globulin 3.9 g/dL Normal 2-4 Albumin/Globulin Ratio 0.9 Low 1-3 Total Bilirubin 0.80 mg/dL Normal 0.2-1.0 Alkaline Phosphatase 170 U/L High 34-104 Alt 15 U/L Normal 7-52 Ast 19 U/L Normal 13-39 Egfr Non- 42.3 >60 Egfr 51.2 >60 8 CBC Auto Diff 07/05/2018 [facility] White Blood 9.0 10^3/uL Normal 3.5-10.8 [phone] Count Red Blood Count 4.08 10^6/uL Normal 3.70-4.87 Hemoglobin 11.9 g/dL Low 12.0-16.0 Hematocrit 36 % Normal 33-41 Mean Corpuscular Volume 89 fL Normal 80-97 Mean Corpuscular Hemoglobin 29 pg Normal 27-31 Mean Corpuscular HGB Conc 33 g/dL Normal 31-36 Red Cell Distribution Width 15 % Normal 10.5-15 Platelet Count 285 10^3/uL Normal 150-450 Mean Platelet Volume 9.1 fL Normal 7.4-10.4 Abs Neutrophils 6.0 10^3/uL Normal 1.5-7.7 Abs Lymphocytes 1.9 10^3/uL Normal 1.0-4.8 Abs Monocytes 0.8 10^3/uL Normal 0-0.8 Abs Eosinophils 0.2 10^3/uL Normal 0-0.6 Abs Basophils 0.1 10^3/uL Normal 0-0.2 Abs Nucleated RBC 0 10^3/uL Granulocyte % 67.1 % Lymphocyte % 20.9 % Monocyte % 8.7 % Eosinophil % 2.3 % Basophil % 1.0 % Nucleated Red Blood Cells % 0 CBC Auto Diff 07/02/2018 [facility] White Blood 8.3 10^3/uL Normal 3.5-10.8 [phone] Count Red Blood Count 4.03 10^6/uL Normal 3.70-4.87 Hemoglobin 11.6 g/dL Low 12.0-16.0 Hematocrit 36 % Normal 33-41 Mean Corpuscular Volume 90 fL Normal 80-97 Mean Corpuscular Hemoglobin 29 pg Normal 27-31 Mean Corpuscular HGB Conc 32 g/dL Normal 31-36 Red Cell Distribution Width 15 % Normal 10.5-15 Platelet Count 257 10^3/uL Normal 150-450 Mean Platelet Volume 9.4 fL Normal 7.4-10.4 Abs Neutrophils 5.7 10^3/uL Normal 1.5-7.7 Abs Lymphocytes 1.5 10^3/uL Normal 1.0-4.8 Abs Monocytes 0.7 10^3/uL Normal 0-0.8 Abs Eosinophils 0.2 10^3/uL Normal 0-0.6 Abs Basophils 0.1 10^3/uL Normal 0-0.2 Abs Nucleated RBC 0 10^3/uL Granulocyte % 68.6 % Lymphocyte % 18.7 % Monocyte % 8.9 % Eosinophil % 3.0 % Basophil % 0.8 % Nucleated Red Blood Cells % 0 Laboratory test finding 06/30/2018 In House Hemoglobin A1c 6.2 Lipid Profile (Trig/Chol/HDL) 06/23/2018 [facility] Triglycerides 70 mg /dL 9 [phone] Cholesterol 81 mg/dL 10 HDL Cholesterol 40.5 mg/dL 11 LDL Cholesterol 27 mg/dL 12 Basic Metabolic Panel 06/23/2018 [facility] Sodium 142 mmol/L Normal 135-145 [phone] Potassium 4.7 mmol/L Normal 3.5-5.0 Chloride 108 mmol/L Normal 101-111 Co2 Carbon Dioxide 26 mmol/L Normal 22-32 Anion Gap 8 mmol/L Normal 2-11 Glucose 91 mg/dL Normal 70-100 Blood Urea Nitrogen 19 mg/dL Normal 6-24 Creatinine 1.11 mg/dL High 0.51-0.95 BUN/Creatinine Ratio 17.1 Normal 8-20 Calcium 9.4 mg/dL Normal 8.6-10.3 Egfr Non- 46.7 >60 Egfr 56.5 >60 13 1 void, clear, yellow 2 [id number] Unable to calculate due to low microalbumin 4 SEE RESULT BELOW Name: KARIME LINN : [address]: Rocael Morales MD Acct: [id number] Unit: [id number] AGE: 83 Location: ENDO Re07/17/18 SEX: F Status: REG REF SPEC: [id number] [place]: 07/17/18-0 [facility] DR: Rocael Morales MD REQ: [id number] RECD: 07/17/18 STATUS: COMP OTHR DR: Ricky Gamble MD _ SOURCE: GAS ANTRUM SPDESC: ORDERED: Clotest Procedure Result Reported Site Clotest Final 07/18/18635 ML Clotest Negative * - Main Lab . END OF REPORT DEPARTMENT OF PATHOLOGY, [address] [place] [address] Kwaku Falk M.D. Director [facility] # [id number] 5 SEE RESULT BELOW Name: KARIME LINN : [address]: Chinyere Lares MD Acct: [id number] Unit: [id number] AGE: 83 Location: ED Re07/05/18 SEX: F Status: DEP ER SPEC: [id number] [place]: 07/05/[address]: Natalee DUNAWAY REQ: [id number] RECD: 07/05/18 STATUS: SALAZAR KAY DR: Reji Gamble MD _ SOURCE: URINE SPDESC: ORDERED: Urine Culture Procedure Result Reported Site Urine Culture Final 07/07/18- 0837 ML Organism 1 KLEBSIELLA PNEUMONIAE [place] Count >100,000 (Many) CFU/ML 1. KLEBSIELLA PNEUMONIAE M.I.C. RX --------- ------ Ampicillin >=32 R Cefazolin <=4 S Cefepime <=1 S Ceftriaxone <=1 S Ciprofloxacin <=0.25 S Gentamicin <=1 S Levofloxacin <=0.12 S Meropenem <=0.25 S Nitrofurantoin 64 I Tetracycline <=1 S Pipercillin/Tazobactam <=4 S Trimethoprim/Sulfamethoxazole <=20 S Amoxicillin/Clavulanic Acid <=2 S Aztreonam <=1 S Contact the Microbiology Department for any additional antibiotic reporting. * ML - Main Lab . END OF REPORT DEPARTMENT OF PATHOLOGY, [address] [place] [address] Kwaku Falk M.D. Director [facility] # [id number] 6 [facility] Severe Sepsis and Septic Shock Management Bundle Measure requires all lactic acids initially measuring >2.0 mmol/L be repeated. 7 Troponin-I testing on Plasma Separator Tubes (PST) has a known false positive rate of 0.20-0.40%. All positive troponins reflex immediate secondary confirmatory testing. 8 Because ethnic data is not always readily available, this report includes an eGFR for both -Americans and non- Americans. The National Kidney Disease Education Program (NKDEP) does not endorse the use of the MDRD equation for patients that are not between the ages of 18 and 70, are , have extremes of body size, muscle mass, or nutritional status, or are non- or non-. According to the National Kidney Foundation, irrespective of diagnosis, the stage of the disease is based on the level of kidney function: Stage Description GFR(mL/min/1.73 m(2)) 1 Kidney damage with normal or decreased GFR 90 2 Kidney damage with mild decrease in GFR 60-89 3 Moderate decrease in GFR 30-59 4 Severe decrease in GFR 15-29 5 Kidney failure <15 (or dialysis) 9 Desirable: <150 Borderline High: 150-199 High: 200-499 Very High: >500 10 Desirable: <200 Borderline High: 200-239 High: >239 11 Low: <40 Desirable: 40-60 High: >60 12 Desirable: <100 Near Optimal: 100-129 Borderline High: 130-159 High: 160-189 Very High: >189 13 Because ethnic data is not always readily available, this report includes an eGFR for both -Americans and non- Americans. The National Kidney Disease Education Program (NKDEP) does not endorse the use of the MDRD equation for patients that are not between the ages of 18 and 70, are , have extremes of body size, muscle mass, or nutritional status, or are non- or non-. According to the National Kidney Foundation, irrespective of diagnosis, the stage of the disease is based on the level of kidney function: Stage Description GFR(mL/min/1.73 m(2)) 1 Kidney damage with normal or decreased GFR 90 2 Kidney damage with mild decrease in GFR 60-89 3 Moderate decrease in GFR 30-59 4 Severe decrease in GFR 15-29 5 Kidney failure <15 (or dialysis) Procedures Date Code Description Status 12/01/2018 292705620 Diabetic Foot Exam Completed 06/20/2017 [id number] Diabetic Retinal Eye Exam Completed 05/22/2010 [id number] Colonoscopy Completed Medical Devices Description No Information Available Encounters Type Date Location Provider Dx Diagnosis Office Visit 12/01/2018 Main Office Ricky Gamble, Z68.28 Body mass index 2:00p M.D. (BMI) 28.0-28.9, adult E11.9 Type 2 diabetes mellitus without complications I10 Essential (primary) hypertension N18.3 Chronic kidney disease, stage 3 (moderate) M81.0 Age-related osteoporosis w/o current pathological fracture M79.604 Pain in right leg M25.551 Pain in right hip M25.561 Pain in right knee M25.562 Pain in left knee M54.5 Low back pain Office Visit 07/03/2018 11:00a Main Office DrakekVitaliy, R19.5 Other fecal D.O. abnormalities E11.69 Type 2 diabetes mellitus with other specified complication R10.84 Generalized abdominal pain Office Visit 06/30/2018 8:30a Main Office Ricky Gamble, E11.69 Type 2 diabetes M.D. 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 12/01/2018 E11.9 Type 2 diabetes mellitus without Ricky Gamble M.D. complications 12/01/2018 I10 Essential (primary) hypertension Ricky Gamble M.D. 12/01/2018 N18.3 Chronic kidney disease, stage 3 (moderate) Ricky Gamble M.D. 12/01/2018 M81.0 Age-related osteoporosis without current Ricky Gamble M.D. pathological fracture 12/01/2018 M79.604 Pain in right leg Ricky Gamble M.D. 12/01/2018 M25.551 Pain in right hip Ricky Gamble M.D. 12/01/2018 M25.561 Pain in right knee Ricky Gamble M.D. 12/01/2018 M25.562 Pain in left knee Ricky Gamble M.D. 12/01/2018 M54.5 Low back pain Ricky Gamble M.D. 07/03/2018 R19.5 Other fecal abnormalities Vitaliy Villalobos D.O. 07/03/2018 E11.69 Type 2 diabetes mellitus with other Vitaliy Villalobos D.O. specified complication 07/03/2018 R10.84 Generalized abdominal pain Vitaliy Villalobos D.O. 06/30/2018 E11.69 Type 2 diabetes mellitus with other Rikcy Gamble M.D. 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 06/30/2018 E78.00 Pure hypercholesterolemia, unspecified Ricky Gamble M.D. 06/30/2018 R12 Heartburn Ricky Gamble M.D. 06/30/2018 L29.2 Pruritus vulvae Ricky Gamble M.D. Plan of Treatment Future Appointment(s):06/01/2019 8:30 am - Ricky Gamble M.D. at Main [facility]12/01/2018 - Ricky Gamble M.D.Z68.28 Body mass index (BMI) 28.0-28.9, wxefcW65.9 Type 2 diabetes mellitus without complicationsComments:A1c 6.1% (was 6.2% in June). Continue current TxFollow up:RTO 6 months recheck chronic [id number] Essential (primary) hypertensionComments:Controlled, w/ white coat [id number] Chronic kidney disease, stage 3 (moderate)M81.0 Age-related osteoporosis without current pathological fractureComments:Discussed starting a bisphosphonate at last ov but decided to hold off until her belly pain was addressed. She is doing better wrt GI issues now but is now unwilling to treat her osteoporosis, incl after a discussion regarding her high fracture risk and how the Tx can reduce her risk.M79.604 Pain in right legNew Medication:PT For R Hip And Leg Pain - suspect lumbar source, possible trochanteric bursitis vs itb source pain; please evaluate and treat, instruct in hep, modalities prnComments:Partially radicular R leg pain. Cause NYD. Uncertain if this is being referred from lumbar spine vs trochanteric bursitis (Diffuse tenderness raises some doubt) vs ITB syndrome vs other. Advised starting PT. Discussed option of steroid inj into troch bursa to see if it helps but she declined this for now. RTO prn if not improving w/ PT.M25.551 Pain in right hipNew Medication: PT For R Hip And Leg Pain - suspect lumbar source, possible trochanteric bursitis vs itb source pain; please evaluate and treat, instruct in hep, modalities prnM25.561 Pain in right kneeM25.562 Pain in left kneeM54.5 Low back painNew Medication:PT For R Hip And Leg Pain - suspect lumbar source, possible trochanteric bursitis vs itb source pain; please evaluate and treat, instruct in hep, modalities prnComments:Suspect MSK LBP sec to OA/spinal stenosis. Await PT. Discussed if not better w/ this we could consider MRI and referral for injections Functional Status Description No Information Available Mental Status Description No Information Available Referrals Refer to Reason for Referral Status Appt Date Rocael Morales MD 83yo woman w/ GERD and Hx PUD c/o refractory Closed 07/28 heartburn while on high dose QD PPI. Stopping her aspirin and adding an evening dose of an H2RB made no difference. Consult and Co[facility] [address] [address] [phone]
--- NOTE | 2018-12-07 10:56 | UC ---
Lower Extremity/Ankle HPI - HPI Summary HPI Summary: 83 yo woman, twisted left foot and fell when she mis-stepped off a curb x 4 days ago. Has had pain, swelling and bruising, with difficultly weight bearing. Using walker for support, but hobbling. Acetaminophen and ice give some relief of pain. - History of Current Complaint Chief Complaint: UCLowerExtremity Stated Complaint: FOOT INJURY Time Seen by Provider: 12/07/18 10:50 Hx Obtained From: Patient Onset/Duration: Sudden Onset, Lasting Days - 4 Severity Initially: Moderate Severity Currently: Moderate Pain Intensity: 6 Aggravating Factor(s): Standing, Ambulation Alleviating Factor(s): Rest, Ice, OTC Meds Able to Bear Weight: No - Risk Factors Gout Risk Factors: Negative DVT Risk Factors: Negative Septic Arthritis Risk Factor: Negative - Allergies/Home Medications Allergies/Adverse Reactions: Allergies Allergy/AdvReac Type Severity Reaction Status Date / Time repaglinide Allergy Unknown Verified 12/07/18 10:25 Reaction Details PMH/Surg Hx/FS Hx/Imm Hx Previously Healthy: Yes Endocrine History: Diabetes Cardiovascular History: Hypertension - Surgical History Surgical History: Yes Surgery Procedure, Year, and Place: 1965,. breast biopsy ,. cateracts x2, 2008. ulcer repair - Family History Known Family History: Positive: Diabetes, Renal Disease Negative: Cardiac Disease - Social History Alcohol Use: None Substance Use Type: None Smoking Status (MU): Former Smoker Amount Used/How Often: smoked for 45 years 1 ppd When Did the Patient Quit Smoking/Using Tobacco: pt quit 36 yrs ago - Immunization History Most Recent Influenza Vaccination: 2018 Most Recent Tetanus Shot: within a few years Most Recent Pneumonia Vaccination: has had in past Review of Systems All Other Systems Reviewed And Are Negative: Yes Constitutional: Positive: Negative Skin: Positive: Negative Eyes: Positive: Negative ENT: Positive: Negative Respiratory: Negative: Shortness Of Breath, Cough Cardiovascular: Negative: Palpitations, Chest Pain Gastrointestinal: Positive: Negative Is Patient Immunocompromised?: No Physical Exam Triage Information Reviewed: Yes Appearance: Well-Appearing, Pain Distress - mild at rest, moderate with palpation. Vital Signs: Initial Vital Signs Temp 97.8 F 12/07/18 10:22 Pulse 63 12/07/18 10:22 Resp 15 12/07/18 10:22 BP 116/45 12/07/18 10:22 Pulse Ox 100 12/07/18 10:22 Eye Exam: Normal ENT: Positive: Normal ENT inspection Respiratory: Positive: Lungs clear, Normal breath sounds Cardiovascular: Positive: RRR, No Murmur Musculoskeletal: Positive: ROM Limited @ - left mid foot. ankle rom is full. Mild TTP lateral malleolus; moderate swelling ecchymosis lateral forefoot extending from mid foot to toes over 3rd, 4th, 5th metatarsals. Neurological Exam: Other Neurological: Positive: Alert, Muscle Tone Normal Diagnostics - Radiology No standard instances Radiology Interpretation Completed By: Radiologist - Per Dr. Herrera: osteopenia of foot bones, no fracture Per Dr. Wing: no hip fracture. Re-Evaluation - Re-Evaluation First Eval Re-Evaluation Time: 11:40 - increase in hip pain upon return from imaging of foot Change: Worse Lower Extremity Course/Dx - Course Course Of Treatment: acetaminophen for control of pain Continue use of walker at home. Follow up with PT and Dr. Gamble. - Differential Dx/Diagnosis Differential Diagnosis/HQI/PQRI: Contusion, Sprain, Strain Provider Diagnosis: Contusion of foot, left, Strain of left hip Discharge ED - Sign-Out/Discharge Documenting (check all that apply): Patient Departure All imaging exams completed and their final reports reviewed: Yes - Discharge Plan Condition: Stable Disposition: HOME Patient Education Materials: Contusion in Adults (ED), Hip Sprain (ED) Referrals: Ricky Gamble MD [Primary Care Provider] - Additional Instructions: Increase use of acetaminophen for pain control, taking up to 3000 mg per day; I suggest taking 1000mg three times daily for the next several days, then decreasing to twice daily. You might try soaking your foot in warm water and epsom salts. Continue use of walker for support, and return to physical therapy for continued work on hip pain and balance. - Billing Disposition and Condition Condition: STABLE Disposition: Home
[2018-12-07 12:39] VITALS: BP 103/53
== END 2018-12-07 12:45 | disposition home or self-care (01) ==
LOC: UCEAST 10:09
DX: S76.012A Strain of muscle, fascia and tendon of left hip, initial encounter (principal); S90.32XA Contusion of left foot, initial encounter; W10.1XXA Fall (on)(from) sidewalk curb, initial encounter; Y93.01 Activity, walking, marching and hiking; Y92.410 Unspecified street and highway as the place of occurrence of the external cause; E11.9 Type 2 diabetes mellitus without complications; I10 Essential (primary) hypertension; Z87.891 Personal history of nicotine dependence
CPT/HCPCS: 99212; G0463